=== PATIENT | female | born 1985 | race Caucasian/White ===

== ENCOUNTER 2024-05-15 00:30 | Inpatient (IN) | payer MEDICARE, MEDICAID, SELFPAY ==
--- NOTE | 2024-05-15 | ECG_ITS ---
Test Reason : PROLONGED QTC MEDS Blood Pressure : / mmHG Vent. Rate : 069 BPM Atrial Rate : 069 BPM P-R Int : 156 ms QRS Dur : 076 ms QT Int : 418 ms P-R-T Axes : 079 067 051 degrees QTc Int : 447 ms Normal sinus rhythm Normal ECG No previous ECGs available Referred By: Sharlene Lee Electronically Signed By:Alberto Anderson
--- NOTE | ~2024-05-15 | CT_ITS ---
EXAMINATION: CT ABDOMEN AND PELVIS WITH CONTRAST CLINICAL INFORMATION: Abdominal pain. COMPARISON: None available. TECHNIQUE: Multidetector volumetric images were obtained from the superior aspect of the liver through the pubic symphysis following administration 85 mL of Omnipaque 350 intravenous contrast whiteout reported immediate complication. Sagittal and coronal reformatted images were obtained on the technologist's workstation. Oral contrast: No This CT examination was performed using dose optimization techniques as appropriate, variously including the following: *Automated exposure control *Adjustment of mA and/or kV according to patient size (this includes techniques or standardized protocols for targeted exams where dose is matched to indication/reason for exam; i.e. extremities or head) *Use of iterative reconstruction technique DLP: 351 mGy-cm FINDINGS: LUNG BASES: No acute airspace disease or gross pulmonary nodules in the included lungs. LIVER, GALLBLADDER, AND BILIARY TREE: Liver measures 16 cm. No focal mass. Portal vein and hepatic veins are patent. Intrahepatic portion of the IVC is patent. No intrahepatic biliary ductal dilatation. Contracted gallbladder without pericholecystic fluid collection or gallbladder wall thickening. Common bile duct measures 4 mm. PANCREAS: No focal pancreatic mass. No peripancreatic fluid collection. No main pancreatic ductal dilatation. SPLEEN: Measures 7 cm. No focal mass. ADRENAL GLANDS: No nodular lesion. KIDNEYS AND URETERS: Normal enhancement pattern of the renal parenchyma without hydronephrosis or gross mass. Subcentimeter cyst, left kidney. BLADDER: Fluid-filled. GASTROINTESTINAL TRACT: Segmental concentric wall thickening, descending colon and segments of the edematous wall in the distal ileal loops. No intestinal obstruction pattern. No pneumatosis intestinalis. Appendix is normal. No ascites. An edematous mesentery . No pneumoperitoneum. ABDOMINAL WALL: No gross hernia. LYMPH NODES: No gross lymphadenopathy. VASCULAR: No aneurysm or dissection, abdominal aorta. PELVIC VISCERA: No gross lesions in the adnexa or the uterus. OSSEOUS STRUCTURES: No acute fracture or listhesis. No lytic or blastic lesions. CT/CT abdomen pelvis w IV con IMPRESSION: Consider inflammatory bowel disease such as Crohn's disease and less likely ulcerative colitis in the correct clinical settings. Discussed with the emergency physician Dr. Bonilla at 8:40 AM. Fleischner guidelines were followed. Electronically signed by: Rigo Ye MD 05/15/2024 08:47 AM AN[facility] REDDY
[2024-05-15 00:31] VITALS: BP 137/77; PULSE 100; RESP 18; TEMP 37.2; O2SAT 98; BMI 22.9
[2024-05-15 01:23] LABS: MANUAL DIFF FLAG NO
[2024-05-15 01:26] LABS: Basophils Absolute Auto 0.1 X10*3/uL (0.0-0.2); Basophils Percent Auto 0.3 % (0-2); Eosinophils Absolute Auto 0.1 X10*3/uL (0.0-0.4); Eosinophils Percent Auto 0.3 % (0-4); Hematocrit 38.1 % (37.0-47.0); Hemoglobin 13.2 g/dl (12.0-16.0); Imm Gran Abs Auto 0.05 X10*3/uL (0.00-0.03); Imm Gran Pct Auto 0.3 % (0.0-0.4); Lymphocytes Absolute Auto 0.9 X10*3/uL (1.2-4.9); Lymphocytes Percent Auto 6.3 % (20-40); Mean Corpuscular HGB Conc 34.6 g/dl (31.0-35.0); Mean Corpuscular Hemoglobin 30.2 pg (27.0-33.0); Mean Corpuscular Volume 87.2 fL (80.0-98.0); Mean Platelet Volume 11.2 fL (9.4-12.3); Monocytes Absolute Auto 0.8 X10*3/uL (0.1-1.2); Monocytes Percent Auto 5.4 % (2-11); Neutrophils Absolute Auto 12.7 x10*3/uL (2.0-8.3); Neutrophils Percent Auto 87.4 % (45-73); Platelet Count 218 X10*3/uL (160-400); Red Blood Count 4.37 X10*6/uL (4.20-5.50); Red Cell Distribution Width 11.4 % (11.0-16.0); White Blood Count 14.5 X10*3/uL (4.8-10.8)
[2024-05-15 01:36] LABS: Alanine Aminotransferase 12 U/L (0-31); Alkaline Phosphatase 59 U/L (39-117); Anion Gap 15 (12-20); Aspartate Amino Transferase 16 U/L (5-31); Bilirubin Total 0.5 mg/dL (0.0-1.0); Blood Urea Nitrogen 13 mg/dL (9-16); Calcium 9.2 mg/dL (8.4-10.2); Carbon Dioxide 21 mmol/L (22-29); Chloride 102 mmol/L (96-108); Creatinine Clr Calc Pharmacy 92.7; Estimated Glomerular Filt Rate > 60; Glucose Random 118 mg/dL (60-115); Lipase 23 U/L (8-78); Potassium 3.9 mmol/L (3.3-5.1); Sodium 134 mmol/L (135-145); Total Protein 6.9 g/dL (6.5-8.0)
[2024-05-15 02:48] LABS: UPreg QC Valid YES; Urine Pregnancy NEGATIVE (NEGATIVE)
[2024-05-15 02:49] LABS: Appearance Urine Clear; Color Urine Yellow; Glucose Urine UA Negative (Negative); Leukocyte Esterase Urine Negative (Negative); Nitrite Urine Negative (Negative); Specific Gravity - Urine 1.025 (1.005-1.025); UMIC TRIGGER UACC YES; Urine Blood Small (1+) (Negative); Urine Ketones Negative (Negative); Urine Protein Negative (Neg-Trace)
[2024-05-15 03:01] LABS: Bacteria Urine None Seen (None Seen); Hyaline Casts Urine 0-2 /LPF (0-2); Squamous Epithelial Cell Urine 0-2 /HPF (0-2); WBC Urine 0-5 /HPF (0-5)
[2024-05-15 04:17] VITALS: BP 117/69; PULSE 78; RESP 18; O2SAT 96
--- NOTE | 2024-05-15 07:12 | ED.ABDPAIN ---
HPI - Abdominal Pain General Chief Complaint: Abdominal Pain Stated Complaint: Abd pain Time Seen by Provider: 05/15/24 07:06 Source: patient Mode of arrival: ambulatory Limitations: no limitations History of Present Illness HPI narrative: This is 39 years old patient with no significant past medical history but hypothyroidism presented to the emergency department complaining of abdominal cramps diarrhea, symptoms started on May 01 subsided and now symptoms back for the last 5 days. There is no fever no vomiting she does have nausea MD elicited complaint: abdominal pain Pertinent past history: none Onset (ago): day(s) (Worse for the last 5 days) Pain Consistency: constant Location: none Quality: cramping Radiation: none Migration to: no migration Associated symptoms: nausea Related Data Home Medications ?Medication ?Instructions ?Recorded ?Confirmed lamotrigine 5 mg chewable 5 mg PO DAILY 05/15/24 05/15/24 dispersible tablet levothyroxine 25 mcg tablet 25 mcg PO DAILY 05/15/24 05/15/24 norgestimate 0.25 mg-ethinyl 1 tab PO DAILY 05/15/24 05/15/24 estradiol 35 mcg tablet (Sprintec (28)) Allergies Allergy/AdvReac Type Severity Reaction Status Date / Time marigold [From Menastil] Allergy Rash Verified 05/15/24 02:41 menthol [From Mencylate] Allergy Rash Verified 05/15/24 00:40 methyl salicylate Allergy Rash Verified 05/15/24 00:40 [From Mencylate] prochlorperazine Allergy Rash Verified 05/15/24 00:40 [From Compazine] Review of Systems Reports system reviewed and no additional complaints, except as documented Respiratory: Reports no additional respiratory complaints Reports system reviewed and no additional complaints, except as documented REPLACED BY [facility] Past Medical History REPLACED BY [facility] Narrative: Hypothyroidism hep C Social History Social History Smoked in Last 30 Days: No Use of substances other than those prescribed or required for medical reasons: No Advance Directives: No Advance Directives Information Provided: No Do you have a plan to hurt others: No Plan Patient : No Physical Exam ED Vital Signs: Vital Signs - 24 hr 05/15/24 00:31 05/15/24 04:17 05/15/24 07:30 Temperature 98.9 F 97.9 F Pulse Rate 100 78 80 Respiratory Rate 18 18 16 Blood Pressure 137/77 117/69 126/80 Pulse Oximetry 98 96 94 Oxygen Delivery Method Room Air Room Air BMI result Body Mass Index 22.9 Patient is in no distress looks well Const General: cooperative and comfortable Orientation/consciousness: patient oriented x3 HENMT Head: Yes normal to inspection General nose exam: Normal external nose present Face and sinus: Yes normal facial exam Mouth: Normal oral and palatal mucosa present Throat: Yes posterior oropharynx normal Neck Neck: Yes normal visual inspection Chest Chest palpation & inspection: normal inspection of the chest Resp Effort & Inspection: normal respiratory effort Auscultation: clear to auscultation bilaterally Cardio Jugular venous distension: no JVD Rhythm: regular rhythm GI Inspection: Yes normal to inspection Palpation (GI): Soft to palpation, not firm and nontender Auscultation: normal bowel sounds General: Yes no CVA tenderness Back/Spine/Pelvis Back: no CVA tenderness Skin General skin exam: no rashes or lesions noted and elasticity normal Rashes: no rashes Neuro General: patient oriented x3 Extrem Right upper extremity: normal to inspection Left upper extremity: full ROM Course Reevaluation(s) Reevaluation #1: Still complaining of pain CT reviewed consistent with colitis differential diagnosis inflammatory bowel disease such Crohn disease such ulcerative colitis versus infectious colitis, at this point I think it is very reasonable to admit the patient for IV fluid IV pain meds antibiotic Time: 10:27 Medical Decision Making Medical Decision Making [facility] Narrative: Patient presented with abdominal comes bloody diarrhea will obtain labs provide hydration antiemetic CT Differential Diagnosis Differential Diagnoses: The differential diagnosis associated with the presentation includes Colitis/diverticulitis/viral syndrome Admission/Observation Consideration of admission/observation: Escalation of care including admission/observation considered Consult Healthcare Provider Management of the patient was discussed with: Hospitalist Lab Data [facility] Lab Attestation statement: I reviewed the patient's lab results. 05/15/24 01:17 05/15/24 01:17 Labs: Lab Results 05/15/24 05/15/24 Range/Units 01:17 02:27 WBC 14.5 H (4.8-10.8) X10*3/uL RBC 4.37 (4.20-5.50) X10*6/uL Hgb 13.2 (12.0-16.0) g/dl Hct 38.1 (37.0-47.0) % MCV 87.2 (80.0-98.0) fL MCH 30.2 (27.0-33.0) pg MCHC 34.6 (31.0-35.0) g/dl RDW 11.4 (11.0-16.0) % Plt Count 218 (160-400) X10*3/uL MPV 11.2 (9.4-12.3) fL Immature Gran % (Auto) 0.3 (0.0-0.4) % Neut % (Auto) 87.4 H (45-73) % Lymph % (Auto) 6.3 L (20-40) % [place] % (Auto) 5.4 (2-11) % Eos % (Auto) 0.3 (0-4) % Baso % (Auto) 0.3 (0-2) % Lymph # (Auto) 0.9 L (1.2-4.9) X10*3/uL [place] # (Auto) 0.8 (0.1-1.2) X10*3/uL Eos # (Auto) 0.1 (0.0-0.4) X10*3/uL Baso # (Auto) 0.1 (0.0-0.2) X10*3/uL Abs Immat Gran (auto) 0.05 H (0.00-0.03) X10*3/uL Absolute Neuts (auto) 12.7 H (2.0-8.3) x10*3/uL Absolute Nucleated RBC 0.000 (0.0-0.012) X10*3/uL Nucleated RBC % (auto) 0.0 (0.0-0.2) /100WBC Sodium 134 L (135-145) mmol/L Potassium 3.9 (3.3-5.1) mmol/L Chloride 102 (96-108) mmol/L Carbon Dioxide 21 L (22-29) mmol/L Anion Gap 15 (12-20) BUN 13 (9-16) mg/dL Creatinine 0.65 (0.5-1.4) mg/dL Estim Creat Clear Calc 92.7 Estimated GFR > 60 Random Glucose 118 H (60-115) mg/dL Calcium 9.2 (8.4-10.2) mg/dL Total Bilirubin 0.5 (0.0-1.0) mg/dL AST 16 (5-31) U/L ALT 12 (0-31) U/L Alkaline Phosphatase 59 (39-117) U/L Total Protein 6.9 (6.5-8.0) g/dL Albumin 4.0 (3.5-5.0) g/dL Lipase 23 (8-78) U/L Urine Color Yellow Urine Appearance Clear Urine pH 5.0 (5.0-9.0) Ur Specific [place] 1.025 (1.005-1.025) Urine Protein Negative (Neg-Trace) mg/dL Urine Glucose (UA) Negative (Negative) mg/dL Urine Ketones Negative (Negative) mg/dL Urine Blood Small (1+) H (Negative) Urine Nitrite Negative (Negative) Ur Leukocyte Esterase Negative (Negative) Urine RBC 6-10 H (0-2) /HPF Urine WBC 0-5 (0-5) /HPF Ur Squamous Epith Cells 0-2 (0-2) /HPF Urine Bacteria None Seen (None Seen) Hyaline Casts 0-2 (0-2) /LPF Urine Test NEGATIVE (NEGATIVE) Independent Interpretation I performed an independent interpretation of an: CT Scan Interpretation: I personally reviewed interpreted CT as colitis Radiology Impression Discussion of test interpretation with radiology: I have reviewed the radiologist's reading. Independent Historian Clinical information obtained from an independent historian. History obtained from or confirmed by: Other (Mother) Prescription Management I considered prescription management with: Pain Medication Medications Administered Generic Name Dose Route Start Last Admin Trade Name Freq PRN Reason Stop Dose Admin Sodium Chloride 1,000 mls @ 999 mls/hr 05/15/24 09:30 05/15/24 09:42 Ns IVCONT 05/15/24 10:30 999 mls/hr .Q1H1M EDUARDO Administration Levofloxacin 500 mg in 100 mls @ 100 mls/hr 05/15/24 09:33 05/15/24 09:42 Levaquin IV 05/15/24 10:32 100 mls/hr ONCE ONE Administration Discontinued Medications Generic Name Dose Route Start Last Admin Trade Name Freq PRN Reason Stop Dose Admin Fentanyl 50 mcg 05/15/24 07:09 05/15/24 07:24 Fentanyl Citrate/Pf 100 Mcg/2 Ml Vial IVPUSH 05/15/24 07:10 50 mcg ONCE ONE Administration Protocol Fentanyl 50 mcg 05/15/24 10:00 05/15/24 10:06 Fentanyl Citrate/Pf 100 Mcg/2 Ml Vial IVPUSH 05/15/24 10:01 50 mcg ONCE ONE Administration Protocol Sodium Chloride 1,000 mls @ 999 mls/hr 05/15/24 07:15 05/15/24 09:05 Ns IVCONT 05/15/24 08:15 Infused .Q1H1M EDUARDO Infusion Iohexol 100 ml 05/15/24 07:49 05/15/24 07:54 Iohexol 350 Mg/Ml 100 Ml Infus..Btl IV 05/15/24 07:50 85 ml ONCE ONE Administration Ondansetron HCl 4 mg 05/15/24 07:09 05/15/24 07:24 Ondansetron Hcl 4 Mg/2 Ml Vial IVPUSH 05/15/24 07:10 4 mg ONCE ONE Administration Discharge Plan Discharge Clinical Impression: Colitis Patient Disposition: Admitted As Inpatient Print Language: Georgian
[2024-05-15] MEDS: 0.9 % Sodium Chloride 1,000 ML 999 ML IVCONT ×2 (07:23→09:42)
[2024-05-15] MEDS: fentaNYL citrate/PF 100 MCG/2 ML VIAL 50 MCG IVPUSH ×2 (07:24→10:06)
[2024-05-15] MEDS: ondansetron HCL 4 MG/2 ML VIAL IVPUSH (07:24)
[2024-05-15 07:30] VITALS: BP 126/80; PULSE 80; RESP 16; TEMP 36.6; O2SAT 94
[2024-05-15] MEDS: iohexoL 350 MG/ML 100 ML INFUS..BTL IV (07:54)
[2024-05-15] MEDS: levoFLOXacin/D5W 500 MG/100 ML PIGGYBACK 100 MG IV (09:42)
--- NOTE | 2024-05-15 10:52 | P.HPHOSP_ITS ---
History of Present Illness Date of Service: 05/15/24 Attending physician on admission: Toribio Lema Chief Complaint: hematochezia, diarrhea, abd cramping Patient is a 39-year-old female with a past medical history significant for hypothyroidism, hepatitis-C (treated) and mood disorder, presented to the ED with hematochezia, diarrhea and abdominal cramping. She reports severe diarrhea starting 05/01 and the following day she had abdominal soreness and soft stool for a few days. The diarrhea then returned and last night around 21:00 became much more significant, at least 10 episodes overnight with bright red blood and severe abdominal cramping, rating it a 6/10 at rest and intermittent sharp 10/10 cramping. She denies any previous history of similar. No recent travel or antibiotics. She does report that there has been a sandwich leak at her apartment and showed videos of switch coming out of her ventilation from the upstairs neighbor. She reports there may have been some contamination with using basins to catch the weeks. She has been practicing good hand hygiene. She also complains of sweats, weakness and dizziness. Review of Systems 2 Constitutional: Constitutional: Denies chills, Reports excessive sweating, Denies headache(s) and Reports weakness Eyes: Eyes: Denies change in vision ENT: Denies dizziness, Denies headache(s), Denies nasal congestion and Denies nasal discharge Cardiovascular: Cardiovascular: Denies chest pain, Denies rapid heart rate, Denies leg edema and Denies dyspnea Respiratory: Respiratory: Denies chest congestion, Denies cough and Denies dyspnea Gastrointestinal: Gastrointestinal: Reports diarrhea Genitourinary: Genitourinary: Denies dysuria Musculoskeletal: Musculoskeletal: Denies muscle cramps, Reports muscle weakness, Denies numbness and Denies tingling Integumentary/Breasts: Skin/Breast: Denies rash Neurologic: Denies confusion, Denies dizziness, Denies headache(s), Denies numbness, Denies tingling and Reports weakness Psychiatric: Psychiatric: Denies confusion Endocrine: Endocrine: Reports excessive sweating PMFSH Functional capacity: independent ambulation Pertinent family history: mother - infectious colitis years ago Social History Smoked in Last 30 Days: No Use of substances other than those prescribed or required for medical reasons: No Advance Directives: No Advance Directives Information Provided: No Do you have a plan to hurt others: No Plan Patient : No Meds Allergies Allergy/AdvReac Type Severity Reaction Status Date / Time marigold [From Menastil] Allergy Rash Verified 05/15/24 02:41 menthol [From Mencylate] Allergy Rash Verified 05/15/24 00:40 methyl salicylate Allergy Rash Verified 05/15/24 00:40 [From Mencylate] prochlorperazine Allergy Rash Verified 05/15/24 00:40 [From Compazine] Home Medications ?Medication ?Instructions ?Recorded ?Confirmed ?Last Taken ?Type lamotrigine 5 mg chewable 5 mg PO DAILY 05/15/24 05/15/24 Unknown History dispersible tablet levothyroxine 25 mcg tablet 25 mcg PO DAILY 05/15/24 05/15/24 Unknown History norgestimate 0.25 mg-ethinyl 1 tab PO DAILY 05/15/24 05/15/24 Unknown History estradiol 35 mcg tablet (Sprintec (28)) Physical Exam 2 Vital Signs and Narrative: Vital Signs: Last Vital Signs Temp 97.9 F 05/15/24 07:30 Pulse 80 05/15/24 07:30 Resp 16 05/15/24 07:30 BP 126/80 05/15/24 07:30 Pulse Ox 94 05/15/24 07:30 O2 Del Method Room Air 05/15/24 07:30 BMI result Body Mass Index 22.9 General: AOx3, no acute distress, seen with mother bedside Resp: CTA bilaterally CVS: S1, S2, RRR GI: +BS, mild generalized tenderness, no distention Skin: Warm, dry Extremities: No edema Psych: Appropriate affect Const: General: No confusion Orientation/consciousness: No confusion Neuro: General: No confusion Results Labs 05/15/24 01:17 05/15/24 01:17 Labs: Laboratory Results - last 24 hr 05/15/24 05/15/24 01:17 02:27 MCV 87.2 MCH 30.2 MCHC 34.6 RDW 11.4 Plt Count 218 MPV 11.2 Immature Gran % (Auto) 0.3 Neut % (Auto) 87.4 H Lymph % (Auto) 6.3 L [place] % (Auto) 5.4 Eos % (Auto) 0.3 Baso % (Auto) 0.3 Lymph # (Auto) 0.9 L [place] # (Auto) 0.8 Eos # (Auto) 0.1 Baso # (Auto) 0.1 Abs Immat Gran (auto) 0.05 H Absolute Neuts (auto) 12.7 H Absolute Nucleated RBC 0.000 Nucleated RBC % (auto) 0.0 Anion Gap 15 Estim Creat Clear Calc 92.7 Estimated GFR > 60 Random Glucose 118 H Calcium 9.2 Total Bilirubin 0.5 AST 16 ALT 12 Alkaline Phosphatase 59 Total Protein 6.9 Albumin 4.0 Lipase 23 Urine Color Yellow Urine Appearance Clear Urine pH 5.0 Ur Specific [place] 1.025 Urine Protein Negative Urine Glucose (UA) Negative Urine Ketones Negative Urine Blood Small (1+) H Urine Nitrite Negative Ur Leukocyte Esterase Negative Urine RBC 6-10 H Urine WBC 0-5 Ur Squamous Epith Cells 0-2 Urine Bacteria None Seen Hyaline Casts 0-2 Urine Test NEGATIVE Imaging Radiologist's Impressions: Impressions Abdomen/Pelvis CT 05/15/24 07:46 IMPRESSION: Consider inflammatory bowel disease such as Crohn's disease and less likely ulcerative colitis in the correct clinical settings. Discussed with the emergency physician Dr. Bonilla at 8:40 AM. Fleischner guidelines were followed. Electronically signed by: Rigo Ye MD 05/15/2024 08:47 AM [facility] Assessment and Plan (1) Colitis: Status: Acute Plan Patient is a 39-year-old female with a past medical history significant for hypothyroidism, hepatitis-C (treated) and mood disorder, presented to the ED with hematochezia, diarrhea and abdominal cramping. Leukocytosis on CBC, vital stable, CT with segmental concentric wall thickening, descending colon and segments of edematous wall in the distal ileal loops. Ddx: infectious colitis, gastroenteritis, IBD Colitis - infectious vs IBD - leukocytosis on CBC - mild hyponatremia on CMP - CT with possible colitis - patient started on Levaquin and Flagyl in ED, we will continue - C diff, stool panel, stool leukocytes and occult blood stool test pending - GI consult Hypothyroid - continue levothyroxine Mood disorder - continue lamotrigine, patient will take home med as she reports she needs specific heating fixture tender medication Hepatitis C - treated, LFTs normal Full code VTE prophylaxis: Lovenox Patient with colitis, infectious versus IBD, requiring admission for IV fluids, pain management and IV antibiotics for at least 2 midnights stay. Quality Stroke Does the patient have a stroke diagnosis?: No VTE Prior VTE?: No VTE Risk Level:: Medical - moderate - high VTE Device Contraindication: Treatment Not Indicated VTE Drug Contraindication: N/A - Med Ordered
[2024-05-15] MEDS: metroNIDAZOLE/NS 500 MG/100 ML PIGGYBACK 100 MG IV ×2 (10:54→20:25)
--- NOTE | 2024-05-15 11:19 | PHA.MEDREC ---
Addendum entered by Tracy Christopher RPh 05/15/24 11:21: Reviewed by [facility] Original Note: Pharmacy Consult ? Medication Reconciliation Pharmacy has reviewed the medication reconciliation done by nurse. Spoke to patient to confirm med list.
[2024-05-15 12:05] VITALS: BP 114/65; PULSE 64; RESP 14; TEMP 36.7; O2SAT 100
--- NOTE | 2024-05-15 12:43 | P.CNGI_ITS ---
History of Present Illness Data of Consult Service Date: 05/15/24 Requesting physician: Sharlene Lee Primary Care Provider: Rachelle Acuna MD HPI Reason for consult: Colitis 39 YF with hx of hypothyroidism, hepatitis-C (treated) and mood disorder seen at [facility] on 05/15/24 with hematochezia, diarrhea and abdominal cramping. Pt reports severe watery, non bloody diarrhea starting 05/01 which resolved after 1-2 days. Since then she has noted some mild abdominal soreness. Last night at around 9 pm, she noted 7-8/10 lower abdominal pain with waves of cramping and loose to watery diarrhea with blood mixed with stools. Pt reports having at least 10 episodes of diarrhea with bright red blood. Pain is worse when she sits up or lies on her side. Pt complains of nausea, chills and sweating, weakness and dizziness and denies fever or vomiting. She denies any change in appetite or weight. Pt gives a hx of mouth ulcers in the past and denies Jt pains or skin rash She denies any history of similar symptoms in the past. No recent travel or antibiotics. She does report that there has been a sheet sewer leak at her apartment and showed videos of stuff coming out of her ventilation from the upstairs neighbor. She reports there may have been some contamination with using basins to catch the leak. She has been practicing good hand hygiene. Pt denies smoking, ETOH or Marijuana or NSAID use. She takes acetaminophen prn for aches and pains Family hx if positive for self limited colitis in her Mom, Maternal GM had diverticulitis and Maternal GGM had colon cancer. Pt denies know FH of IBD. Pt is disabled and lives by herself in an apartment (Mom lives in the same apt building). 05/15/[address] SCAN SHOWED: GASTROINTESTINAL TRACT: Segmental concentric wall thickening, descending colon and segments of the edematous wall in the distal ileal loops. No intestinal obstruction pattern. No pneumatosis intestinalis. Appendix is normal. No ascites. An edematous mesentery . No pneumoperitoneum. Review of Systems 2 Review of Systems: Yes all other systems are reviewed and are negative [facility] Social History Social History Patient Tobacco Use Status: Never used Tobacco Smoked in Last 30 Days: No Use of substances other than those prescribed or required for medical reasons: No Advance Directives: No Advance Directives Information Provided: No Do you have a plan to hurt others: No Plan Nutrition Risks: No Nutritional Risk Patient : No Meds Allergies Allergy/AdvReac Type Severity Reaction Status Date / Time marigold [From Menastil] Allergy Rash Verified 05/15/24 02:41 menthol [From Mencylate] Allergy Rash Verified 05/15/24 00:40 methyl salicylate Allergy Rash Verified 05/15/24 00:40 [From Mencylate] prochlorperazine Allergy Rash Verified 05/15/24 00:40 [From Compazine] Active Medications: Current Medications Acetaminophen (Acetaminophen 325 Mg Tablet) 650 mg PO Q6H PRN PRN Reason: Pain, Mild (Pain Scale 1-3), fever or headache Calcium Carbonate (Calcium Carbonate 750 Mg Tab.Chew) 750 mg PO Q4H PRN PRN Reason: Heartburn Enoxaparin Sodium (Enoxaparin Sodium 40 Mg/0.4 Ml Syringe) 40 mg SUBCUT Q24H [facility] Last Admin: 05/15/24 12:00 Dose: Not Given Metronidazole (Flagyl) 500 mg in 100 mls @ 100 mls/hr IV Q8H [facility] Levofloxacin (Levaquin) 500 mg in 100 mls @ 100 mls/hr IV Q24H [facility] Levothyroxine Sodium (Levothyroxine Sodium 25 Mcg Tablet) 25 mcg PO DAILY@0600 [facility] Last Admin: 05/15/24 11:59 Dose: Not Given Magnesium Hydroxide (Milk Of Magnesia 30 Ml Oral.Susp) 30 ml PO DAILY PRN PRN Reason: Constipation Melatonin (Melatonin 3 Mg Tablet) 6 mg PO BEDTIME PRN PRN Reason: Insomnia Morphine Sulfate (Morphine Sulfate 4 Mg/Ml Cartridge) 2 mg IVPUSH Q4H PRN; Protocol PRN Reason: Pain, Severe (Pain Scale 7-10) Non-Formulary Medication (Lamotrigine) 5 mg PO DAILY [facility] Non-Formulary Medication (Norgestimate-Ethinyl Estradiol [Sprintec (28)]) 1 tab PO DAILY [facility] Ondansetron HCl (Ondansetron Hcl 4 Mg/2 Ml Vial) 4 mg IVPUSH Q8H PRN PRN Reason: Nausea and Vomiting Oxycodone HCl (Oxycodone Hcl Immed Release 5 Mg Tablet) 5 mg PO Q6H PRN PRN Reason: Pain, Moderate(Pain Scale 4-6) Sodium Chloride (0.9 % Sodium Chloride Flush 3 Ml Syringe) 3 ml IVFLUSH QSHIFT [facility] Last Admin: 05/15/24 11:58 Dose: Not Given Home Medications ?Medication ?Instructions ?Recorded ?Confirmed ?Last Taken ?Type lamotrigine 5 mg chewable 5 mg PO BEDTIME 05/15/24 05/15/24 05/14/24 History dispersible tablet levothyroxine 25 mcg tablet 25 mcg PO DAILY@0600 05/15/24 05/15/24 05/14/24 History norgestimate 0.25 mg-ethinyl 1 tab PO BEDTIME 05/15/24 05/15/24 05/14/24 History estradiol 35 mcg tablet (Sprintec (28)) Physical Exam 2 Vital Signs: Vital Signs: Last Vital Signs Temp 98.0 F 05/15/24 12:05 Pulse 64 05/15/24 12:05 Resp 14 05/15/24 12:05 BP 114/65 05/15/24 12:05 Pulse Ox 100 05/15/24 12:05 O2 Del Method Room Air 05/15/24 12:05 BMI result Body Mass Index 22.9 Const: General: no acute distress Nutritional Appearance: average body habitus Orientation/consciousness: patient oriented x3 Limitations: no limitations HEENT: Head: Yes normal to inspection Ears: hearing grossly normal bilaterally Mouth: Normal oral and palatal mucosa present Eyes: Sclerae: sclerae normal Pupils: Equal, round and reactive pupils present Neck: Neck: Yes normal visual inspection Chest: Chest palpation & inspection: normal inspection of the chest Resp: Effort & Inspection: normal respiratory effort Auscultation: clear to auscultation bilaterally Cardio: Palpation: normal PMI Rate: regular rate Rhythm: regular rhythm Heart sounds: S1 normal heart sound present, S2 normal heart sound present and no murmurs GI: Palpation (GI): Soft to palpation, Tenderness to palpation present (GI) (moderate lower abdominal tenderness without rebound) and No hepatosplenomegaly present Auscultation: normal bowel sounds Rectal Exam - Female: deferred Skin: General skin exam: no rashes or lesions noted Neuro: General: patient oriented x3, gait normal and moves all extremities Cranial nerves: Yes Equal, round and reactive pupils present Psych: Appearance: grossly normal Mental Status: mental status grossly normal Results Labs 05/15/24 01:17 05/15/24 01:17 Labs: Short CBC 05/15/24 Range/Units 01:17 WBC 14.5 H (4.8-10.8) X10*3/uL Hgb 13.2 (12.0-16.0) g/dl Hct 38.1 (37.0-47.0) % Plt Count 218 (160-400) X10*3/uL BMP 05/15/24 01:17 Sodium 134 L Potassium 3.9 Chloride 102 Carbon Dioxide 21 L BUN 13 Creatinine 0.65 Calcium 9.2 Liver Function 05/15/24 Range/Units 01:17 Total Bilirubin 0.5 (0.0-1.0) mg/dL AST 16 (5-31) U/L ALT 12 (0-31) U/L Alkaline Phosphatase 59 (39-117) U/L Albumin 4.0 (3.5-5.0) g/dL Urine 05/15/24 Range/Units 02:27 Urine Color Yellow Urine Appearance Clear Urine pH 5.0 (5.0-9.0) Ur Specific [place] 1.025 (1.005-1.025) Urine Protein Negative (Neg-Trace) mg/dL Urine Glucose (UA) Negative (Negative) mg/dL Assessment and Plan (1) Colitis: Status: Acute Plan 39 YF with hx of hypothyroidism, hepatitis-C (treated) and mood disorder admitted [place] [facility] [place] with hematochezia, diarrhea and abdominal cramping. Pt complains of nausea, chills and sweating, weakness and dizziness and denies fever or vomiting. Pt gives a hx of mouth ulcers off and on in the past. Pt denies smoking, ETOH or Marijuana or NSAID use. Abd CT scan showed segmental concentric wall thickening involving the descending colon and segments of edematous wall in the distal ileal loops. Pt symptoms are likely due to infectious or ischemic colitis versus subacute presentation of IBD. Labs show elevated white count and CRP of 1.11. RECOMMENDATIONS: 1. Agree with IV antibiotics, pain medications and anti-emetics 2. Await results of stool studies 3. If stool cultures are negative, I will schedule her for a colonoscopy for further evaluation. Procedures Date of Service Date of Service: 05/15/24
[2024-05-15 14:08] LABS: C Reactive Protein 1.11 mg/dL (< or = 0.50)
[2024-05-15 14:36] LABS: Erythrocyte Sedimentation Rate 5 MM/HR (0-20)
[2024-05-15 15:23] VITALS: BP 120/68; PULSE 74; RESP 16; TEMP 37; O2SAT 99
[2024-05-15] MEDS: Morphine Sulfate 4 MG/ML CARTRIDGE 2 MG IVPUSH (15:29)
[2024-05-15 18:53] VITALS: BP 114/65; PULSE 65; RESP 16; TEMP 37.1; O2SAT 100
--- NOTE | 2024-05-15 19:00 | PC.NURSE ---
late entry 1899- this rn assumed care of pt, pt resting in stretcher in [place] no acute distress noted. vss.
[2024-05-16] VITALS (7 sets, daily range): BP systolic 105–116; BP diastolic 61–98; PULSE 70–87; RESP 16–20; TEMP 36.6–37.3; O2SAT 95–100
[2024-05-16] MEDS: Morphine Sulfate 4 MG/ML CARTRIDGE 2 MG IVPUSH ×2 (00:38→08:11)
--- NOTE | 2024-05-16 00:52 | PC.NURSE ---
pt reporting 7/10 right abdominal pain, pt medicated per sep. vss.
[2024-05-16] MEDS: metroNIDAZOLE/NS 500 MG/100 ML PIGGYBACK 100 MG IV ×3 (03:32→18:21)
[2024-05-16 05:17] LABS: MANUAL DIFF FLAG NO
[2024-05-16 05:18] LABS: Basophils Percent Auto 0.3 % (0-2); Eosinophils Absolute Auto 0.1 X10*3/uL (0.0-0.4); Eosinophils Percent Auto 0.9 % (0-4); Hematocrit 36.1 % (37.0-47.0); Hemoglobin 12.1 g/dl (12.0-16.0); Imm Gran Abs Auto 0.03 X10*3/uL (0.00-0.03); Imm Gran Pct Auto 0.3 % (0.0-0.4); Lymphocytes Absolute Auto 1.3 X10*3/uL (1.2-4.9); Lymphocytes Percent Auto 12.3 % (20-40); Mean Corpuscular HGB Conc 33.5 g/dl (31.0-35.0); Mean Corpuscular Hemoglobin 30.4 pg (27.0-33.0); Mean Corpuscular Volume 90.7 fL (80.0-98.0); Mean Platelet Volume 11.4 fL (9.4-12.3); Monocytes Absolute Auto 0.3 X10*3/uL (0.1-1.2); Monocytes Percent Auto 2.7 % (2-11); Neutrophils Absolute Auto 8.5 x10*3/uL (2.0-8.3); Neutrophils Percent Auto 83.5 % (45-73); Platelet Count 162 X10*3/uL (160-400); Red Blood Count 3.98 X10*6/uL (4.20-5.50); Red Cell Distribution Width 11.8 % (11.0-16.0); White Blood Count 10.2 X10*3/uL (4.8-10.8)
[2024-05-16 05:35] LABS: Anion Gap 11 (12-20); Blood Urea Nitrogen 4 mg/dL (9-16); Calcium 8.8 mg/dL (8.4-10.2); Carbon Dioxide 24 mmol/L (22-29); Chloride 105 mmol/L (96-108); Creatinine Clr Calc Pharmacy 86.1; Estimated Glomerular Filt Rate > 60; Glucose Random 94 mg/dL (60-115); Potassium 3.4 mmol/L (3.3-5.1); Sodium 137 mmol/L (135-145)
--- NOTE | 2024-05-16 06:05 | PC.NURSE ---
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 per hospitalist note, okayed. dr.vali slaughter.
--- NOTE | 2024-05-16 06:42 | PC.NURSE ---
pt ambulatory with steady gait to bathroom. pt denies sob and pain.
[2024-05-16] MEDS: ondansetron HCL 4 MG/2 ML VIAL IVPUSH ×3 (08:04→23:45)
[2024-05-16] MEDS: levoFLOXacin/D5W 500 MG/100 ML PIGGYBACK 100 MG IV (10:21)
--- NOTE | 2024-05-16 11:37 | MHC.CM.PN ---
IMM 05/16/24, pt lives alone, is independent, no home health services or DME. HCP discussed, pt will complete and it will be added to chart. PCP confirmed: Rachelle Acuna. DCP: home, self care, mother to transport home. CM to follow for DC needs.
[2024-05-16] MEDS: Morphine Sulfate 4 MG/ML CARTRIDGE IVPUSH ×2 (13:30→23:03)
--- NOTE | 2024-05-16 13:47 | HO.PM.IMPN ---
Subjective Subjective Date of Service: 05/16/24 Interval History: pt admitted for colitis, abd pain, diarrhea, hematochezia still having abd pain and cramping, worse with movement and eating rating it a 10/10 with movement, 6/10 with the morphine and oxycodone no BM since her urine contaminated sample yesterday nausea ok, no further vomiting. Constitutional Constitutional: Denies body ache(s) and Denies headache(s) Eyes Eyes: Denies blurry vision and Denies change in vision ENT Ears, Nose, Mouth, and Throat: Denies headache(s), Denies nasal congestion, Denies nasal discharge and Denies nasal obstruction Cardiovascular Cardiovascular: Denies chest pain, Denies rapid heart rate, Denies leg edema and Denies dyspnea Respiratory Respiratory: Denies cough and Denies dyspnea Gastrointestinal Gastrointestinal: Reports as per HPI Genitourinary Genitourinary: Denies dysuria and Denies urinary urgency Musculoskeletal Musculoskeletal: Denies myalgias Integumentary/Breasts Skin/Breast: Denies rash Neurologic Neurologic: Denies confusion and Denies headache(s) Psychiatric Psychiatric: Reports anxiety and Denies confusion Physical Exam Vital Signs: Vital Signs: Last Vital Signs Temp 98.1 F 05/16/24 13:23 Pulse 78 05/16/24 13:23 Resp 17 05/16/24 13:23 BP 115/65 05/16/24 13:23 Pulse Ox 98 05/16/24 13:23 O2 Del Method Room Air 05/16/24 13:23 BMI result Body Mass Index 22.9 General: AOx3, no acute distress Resp: CTA bilaterally CVS: S1, S2, RRR GI: +BS, generalized tenderness, no distention Skin: Warm, dry Extremities: No edema Psych: Appropriate affect Const: General: No confusion Orientation/consciousness: No confusion Neuro: General: No confusion Objective Data Active Medications Acetaminophen (Acetaminophen 325 Mg Tablet) 650 mg PO Q6H PRN PRN Reason: Pain, Mild (Pain Scale 1-3), fever or headache Calcium Carbonate (Calcium Carbonate 750 Mg Tab.Chew) 750 mg PO Q4H PRN PRN Reason: Heartburn Enoxaparin Sodium (Enoxaparin Sodium 40 Mg/0.4 Ml Syringe) 40 mg SUBCUT Q24H [facility] Last Admin: 05/16/24 11:36 Dose: Not Given Documented By: HO.PROVENC Non-Admin Reason: Patient Refused Levofloxacin (Levaquin) 500 mg in 100 mls @ 100 mls/hr IV Q24H [facility] Last Infusion: 05/16/24 11:24 Dose: Infused Documented By: ANTOINE Metronidazole (Flagyl) 500 mg in 100 mls @ 100 mls/hr IV Q8H [facility] Last Infusion: 05/16/24 13:07 Dose: Infused Documented By: ANTOINE Levothyroxine Sodium (Levothyroxine Sodium 25 Mcg Tablet) 25 mcg PO DAILY@0600 [facility] Last Admin: 05/16/24 06:04 Dose: Not Given Documented By: RALPH Non-Admin Reason: Patient Refused Magnesium Hydroxide (Milk Of Magnesia 30 Ml Oral.Susp) 30 ml PO DAILY PRN PRN Reason: Constipation Melatonin (Melatonin 3 Mg Tablet) 6 mg PO BEDTIME PRN PRN Reason: Insomnia Morphine Sulfate (Morphine Sulfate 4 Mg/Ml Cartridge) 4 mg IVPUSH Q4H PRN; Protocol PRN Reason: Pain, Severe (Pain Scale 7-10) Last Admin: 05/16/24 13:30 Dose: 4 mg Documented By: THI Non-Formulary Medication (Lamotrigine) 5 mg PO DAILY [facility] Non-Formulary Medication (Norgestimate-Ethinyl Estradiol [Sprintec (28)]) 1 tab PO DAILY [facility] Ondansetron HCl (Ondansetron Hcl 4 Mg/2 Ml Vial) 4 mg IVPUSH Q8H PRN PRN Reason: Nausea and Vomiting Last Admin: 05/16/24 08:04 Dose: 4 mg Documented By: ANTOINE Oxycodone HCl (Oxycodone Hcl Immed Release 5 Mg Tablet) 5 mg PO Q6H PRN PRN Reason: Pain, Moderate(Pain Scale 4-6) Sodium Chloride (0.9 % Sodium Chloride Flush 3 Ml Syringe) 3 ml IVFLUSH QSHIFT [facility] Last Admin: 05/16/24 07:56 Dose: Not Given Documented By: ANTOINE Non-Admin Reason: See Note Labs 05/16/24 04:57 05/16/24 04:57 Labs: Laboratory Results - last 24 hr 05/15/24 05/16/24 13:48 04:57 MCV 90.7 MCH 30.4 MCHC 33.5 RDW 11.8 Plt Count 162 D MPV 11.4 Immature Gran % (Auto) 0.3 Neut % (Auto) 83.5 H Lymph % (Auto) 12.3 L [place] % (Auto) 2.7 Eos % (Auto) 0.9 Baso % (Auto) 0.3 Lymph # (Auto) 1.3 [place] # (Auto) 0.3 Eos # (Auto) 0.1 Baso # (Auto) 0.0 Abs Immat Gran (auto) 0.03 Absolute Neuts (auto) 8.5 H Absolute Nucleated RBC 0.000 Nucleated RBC % (auto) 0.0 ESR 5 Anion Gap 11 L Estim Creat Clear Calc 86.1 Estimated GFR > 60 Random Glucose 94 Calcium 8.8 C-Reactive Protein 1.11 H Assessment and Plan (1) Colitis: Status: Acute Plan Patient is a 39-year-old female with a past medical history significant for hypothyroidism, hepatitis-C (treated) and mood disorder, admitted for colitis. 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 Quality Stroke Does the patient have a stroke diagnosis?: No VTE Prior VTE?: No VTE Risk Level:: Medical - moderate - high VTE Device Contraindication: Treatment Not Indicated VTE Drug Contraindication: N/A - Med Ordered
[2024-05-16] MEDS: 0.9 % Sodium Chloride Flush 3 ML SYRINGE IVFLUSH (15:35)
[2024-05-17] VITALS (9 sets, daily range): BP systolic 105–151; BP diastolic 55–94; PULSE 60–77; RESP 14–18; TEMP 36.1–36.8; O2SAT 94–99; BMI 22.9
[2024-05-17] MEDS: metroNIDAZOLE/NS 500 MG/100 ML PIGGYBACK 100 MG IV ×3 (03:23→18:40)
[2024-05-17 05:59] LABS: MANUAL DIFF FLAG NO
[2024-05-17 06:04] LABS: Basophils Absolute Auto 0.1 X10*3/uL (0.0-0.2); Basophils Percent Auto 0.5 % (0-2); Eosinophils Absolute Auto 0.2 X10*3/uL (0.0-0.4); Eosinophils Percent Auto 1.8 % (0-4); Hematocrit 34.6 % (37.0-47.0); Hemoglobin 11.4 g/dl (12.0-16.0); Imm Gran Abs Auto 0.02 X10*3/uL (0.00-0.03); Imm Gran Pct Auto 0.2 % (0.0-0.4); Lymphocytes Absolute Auto 1.7 X10*3/uL (1.2-4.9); Lymphocytes Percent Auto 17.7 % (20-40); Mean Corpuscular HGB Conc 32.9 g/dl (31.0-35.0); Mean Corpuscular Hemoglobin 29.4 pg (27.0-33.0); Mean Corpuscular Volume 89.2 fL (80.0-98.0); Mean Platelet Volume 11.3 fL (9.4-12.3); Monocytes Absolute Auto 0.8 X10*3/uL (0.1-1.2); Monocytes Percent Auto 8.4 % (2-11); Neutrophils Absolute Auto 6.8 x10*3/uL (2.0-8.3); Neutrophils Percent Auto 71.4 % (45-73); Platelet Count 173 X10*3/uL (160-400); Red Blood Count 3.88 X10*6/uL (4.20-5.50); Red Cell Distribution Width 11.7 % (11.0-16.0); White Blood Count 9.5 X10*3/uL (4.8-10.8)
[2024-05-17 06:26] LABS: Anion Gap 12 (12-20); Blood Urea Nitrogen 3 mg/dL (9-16); Calcium 8.7 mg/dL (8.4-10.2); Carbon Dioxide 25 mmol/L (22-29); Chloride 101 mmol/L (96-108); Creatinine Clr Calc Pharmacy 92.7; Estimated Glomerular Filt Rate > 60; Glucose Random 77 mg/dL (60-115); Potassium 3.3 mmol/L (3.3-5.1); Sodium 135 mmol/L (135-145)
[2024-05-17] MEDS: ondansetron HCL 4 MG/2 ML VIAL IVPUSH ×2 (08:26→17:22)
[2024-05-17] MEDS: Morphine Sulfate 4 MG/ML CARTRIDGE IVPUSH (08:27)
[2024-05-17] MEDS: 0.9 % Sodium Chloride Flush 3 ML SYRINGE IVFLUSH ×2 (08:30→15:52)
--- NOTE | 2024-05-17 09:18 | HO.PM.IMPN ---
Subjective Subjective Date of Service: 05/17/24 Interval History: Patient admitted for colitis Pain is somewhat better, able to sit on side of bed which she has not been able to do for the past few days Nausea and vomiting controlled Has not had a bowel movement yet to give sample Anxious about sigmoidoscopy today Constitutional Constitutional: Denies chills and Denies fever(s) Eyes Eyes: Denies change in vision ENT Ears, Nose, Mouth, and Throat: Denies nasal congestion and Denies nasal discharge Cardiovascular Cardiovascular: Denies chest pain, Denies rapid heart rate, Denies leg edema and Denies dyspnea Respiratory Respiratory: Denies cough and Denies dyspnea Gastrointestinal Gastrointestinal: Reports as per HPI Genitourinary Genitourinary: Denies dysuria and Denies urinary urgency Musculoskeletal Musculoskeletal: Denies myalgias Integumentary/Breasts Skin/Breast: Denies rash Neurologic Neurologic: Denies confusion Psychiatric Psychiatric: Denies confusion Physical Exam Vital Signs: Vital Signs: Last Vital Signs Temp 98 F 05/17/24 07:51 Pulse 73 05/17/24 07:51 Resp 16 05/17/24 07:51 BP 107/60 05/17/24 07:51 Pulse Ox 94 05/17/24 07:51 O2 Del Method Room Air 05/17/24 07:51 BMI result Body Mass Index 22.9 General: AOx3, no acute distress Resp: CTA bilaterally CVS: S1, S2, RRR GI: hypoactive BS, generalized tenderness with palpation, no distention Skin: Warm, dry Extremities: No edema Psych: Appropriate affect, anxious Const: General: No confusion Orientation/consciousness: No confusion Neuro: General: No confusion Objective Data Active Medications Acetaminophen (Acetaminophen 325 Mg Tablet) 650 mg PO Q6H PRN PRN Reason: Pain, Mild (Pain Scale 1-3), fever or headache Calcium Carbonate (Calcium Carbonate 750 Mg Tab.Chew) 750 mg PO Q4H PRN PRN Reason: Heartburn Enoxaparin Sodium (Enoxaparin Sodium 40 Mg/0.4 Ml Syringe) 40 mg SUBCUT Q24H [facility] Last Admin: 05/16/24 11:36 Dose: Not Given Documented By: ANTOINE Non-Admin Reason: Patient Refused Levofloxacin (Levaquin) 500 mg in 100 mls @ 100 mls/hr IV Q24H [facility] Last Infusion: 05/16/24 11:24 Dose: Infused Documented By: ANTOINE Metronidazole (Flagyl) 500 mg in 100 mls @ 100 mls/hr IV Q8H [facility] Last Infusion: 05/17/24 04:32 Dose: Infused Documented By: EHSAN Levothyroxine Sodium (Levothyroxine Sodium 25 Mcg Tablet) 25 mcg PO DAILY@0600 [facility] Last Admin: 05/17/24 06:13 Dose: Not Given Documented By: EHSAN Non-Admin Reason: Refused at this time, wants to take later Magnesium Hydroxide (Milk Of Magnesia 30 Ml Oral.Susp) 30 ml PO DAILY PRN PRN Reason: Constipation Melatonin (Melatonin 3 Mg Tablet) 6 mg PO BEDTIME PRN PRN Reason: Insomnia Morphine Sulfate (Morphine Sulfate 4 Mg/Ml Cartridge) 4 mg IVPUSH Q4H PRN; Protocol PRN Reason: Pain, Severe (Pain Scale 7-10) Last Admin: 05/17/24 08:27 Dose: 4 mg Documented By: THI Pt Owned ( Lamotrigine 5 Mg Tablet, Chewable Dispersible) 5 mg PO DAILY [facility] Last Admin: 05/16/24 23:43 Dose: Not Given Documented By: EHSAN Non-Admin Reason: Previously Administered Pt Owned Med ( Norgestimate-Ethinyl Estradiol [Sprintec (28)] 0.25-35 Mg- Mcg Ta 1 tab PO DAILY [facility] Last Admin: 05/16/24 23:43 Dose: Not Given Documented By: EHSAN Non-Admin Reason: Previously Administered Ondansetron HCl (Ondansetron Hcl 4 Mg/2 Ml Vial) 4 mg IVPUSH Q8H PRN PRN Reason: Nausea and Vomiting Last Admin: 05/17/24 08:26 Dose: 4 mg Documented By: THI Oxycodone HCl (Oxycodone Hcl Immed Release 5 Mg Tablet) 5 mg PO Q6H PRN PRN Reason: Pain, Moderate(Pain Scale 4-6) Sodium Chloride (0.9 % Sodium Chloride Flush 3 Ml Syringe) 3 ml IVFLUSH QSHIFT [facility] Last Admin: 05/17/24 08:30 Dose: 3 ml Documented By: THI Labs 05/17/24 05:36 05/17/24 05:36 Labs: Laboratory Results - last 24 hr 05/17/24 05:36 MCV 89.2 MCH 29.4 MCHC 32.9 RDW 11.7 Plt Count 173 MPV 11.3 Immature Gran % (Auto) 0.2 Neut % (Auto) 71.4 Lymph % (Auto) 17.7 L [place] % (Auto) 8.4 Eos % (Auto) 1.8 Baso % (Auto) 0.5 Lymph # (Auto) 1.7 [place] # (Auto) 0.8 Eos # (Auto) 0.2 Baso # (Auto) 0.1 Abs Immat Gran (auto) 0.02 Absolute Neuts (auto) 6.8 Absolute Nucleated RBC 0.000 Nucleated RBC % (auto) 0.0 Anion Gap 12 Estim Creat Clear Calc 92.7 Estimated GFR > 60 Random Glucose 77 Calcium 8.7 Assessment and Plan (1) Colitis: Status: Acute Plan Patient is a 39-year-old female with a past medical history significant for hypothyroidism, hepatitis-C (treated) and mood disorder, admitted for colitis. 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 Quality Stroke Does the patient have a stroke diagnosis?: No VTE Prior VTE?: No VTE Risk Level:: Medical - moderate - high VTE Device Contraindication: Treatment Not Indicated VTE Drug Contraindication: N/A - Med Ordered
[2024-05-17] MEDS: levoFLOXacin/D5W 500 MG/100 ML PIGGYBACK 100 MG IV (10:23)
--- NOTE | 2024-05-17 13:48 | MHC.SHP ---
Pre-Procedural Eval Section A - 24 Hr Update-Section A only Date of Service: 05/17/24 The patient is an INPATIENT: Yes Changes since office visit: Yes New Medical Problems, Yes Changes in Medication and Yes Patient answered all questions; No Cold of Flu in the past 2 weeks The patient has been examined within 24 hours of the surgical procedure. The History & Physical has been completed within 30 days and I have reviewed it.: Yes Section B - Complete if H&P > 30 days Chief Complaint: colitis Allergies: Allergies Allergy/AdvReac Type Severity Reaction Status Date / Time marigold [From Menastil] Allergy Rash Verified 05/15/24 02:41 menthol [From Mencylate] Allergy Rash Verified 05/15/24 00:40 methyl salicylate Allergy Rash Verified 05/15/24 00:40 [From Mencylate] prochlorperazine Allergy Rash Verified 05/15/24 00:40 [From Compazine] Plan Diagnosis/Plan: Unchanged I have reviewed the history and physical and performed a pertinent physical examination on my patient. No changes have occurred unless specified. Time Spent With Patient Time: Total time managing care of this patient today ____ minutes.
--- NOTE | 2024-05-17 13:53 | HO.ANESPROP2 ---
HPI - Anesthesia Eval Consult details Narrative: 39 yo female patient for Flexible sigmoidoscopy PMFSH Active Problems Active Problems: All Active Problems Complex posttraumatic stress disorder (Acute) Hypothyroid (Acute) Colitis (Acute) H/o hepatitis C. Treated Family History Family history of problems with anesthesia: No Surgical History History of Problems with Anesthesia: No Social History Social History Household Members: None Housing: Apartment Do you presently have visiting nurse or other home services: No Patient Tobacco Use Status: Never used Tobacco service: No Meds Allergies Allergy/AdvReac Type Severity Reaction Status Date / Time marigold [From Menastil] Allergy Rash Verified 05/15/24 02:41 menthol [From Mencylate] Allergy Rash Verified 05/15/24 00:40 methyl salicylate Allergy Rash Verified 05/15/24 00:40 [From Mencylate] prochlorperazine Allergy Rash Verified 05/15/24 00:40 [From Compazine] Active Medications: Current Medications Acetaminophen (Acetaminophen 325 Mg Tablet) 650 mg PO Q6H PRN PRN Reason: Pain, Mild (Pain Scale 1-3), fever or headache Calcium Carbonate (Calcium Carbonate 750 Mg Tab.Chew) 750 mg PO Q4H PRN PRN Reason: Heartburn Enoxaparin Sodium (Enoxaparin Sodium 40 Mg/0.4 Ml Syringe) 40 mg SUBCUT Q24H [facility] Last Admin: 05/16/24 11:36 Dose: Not Given Levofloxacin (Levaquin) 500 mg in 100 mls @ 100 mls/hr IV Q24H [facility] Last Infusion: 05/17/24 11:29 Dose: Infused Metronidazole (Flagyl) 500 mg in 100 mls @ 100 mls/hr IV Q8H [facility] Last Infusion: 05/17/24 12:35 Dose: Infused Levothyroxine Sodium (Levothyroxine Sodium 25 Mcg Tablet) 25 mcg PO DAILY@0600 [facility] Last Admin: 05/17/24 06:13 Dose: Not Given Magnesium Hydroxide (Milk Of Magnesia 30 Ml Oral.Susp) 30 ml PO DAILY PRN PRN Reason: Constipation Melatonin (Melatonin 3 Mg Tablet) 6 mg PO BEDTIME PRN PRN Reason: Insomnia Morphine Sulfate (Morphine Sulfate 4 Mg/Ml Cartridge) 4 mg IVPUSH Q4H PRN; Protocol PRN Reason: Pain, Severe (Pain Scale 7-10) Last Admin: 05/17/24 08:27 Dose: 4 mg Pt Owned ( Lamotrigine 5 Mg Tablet, Chewable Dispersible) 5 mg PO BEDTIME EDUARDO Pt Owned Med ( Norgestimate-Ethinyl Estradiol [Sprintec (28)] 0.25-35 Mg- Mcg Ta 1 tab PO BEDTIME [facility] Ondansetron HCl (Ondansetron Hcl 4 Mg/2 Ml Vial) 4 mg IVPUSH Q8H PRN PRN Reason: Nausea and Vomiting Last Admin: 05/17/24 08:26 Dose: 4 mg Oxycodone HCl (Oxycodone Hcl Immed Release 5 Mg Tablet) 5 mg PO Q6H PRN PRN Reason: Pain, Moderate(Pain Scale 4-6) Sodium Chloride (0.9 % Sodium Chloride Flush 3 Ml Syringe) 3 ml IVFLUSH QSHIFT [facility] Last Admin: 05/17/24 08:30 Dose: 3 ml Home Medications ?Medication ?Instructions ?Recorded ?Confirmed ?Last Taken ?Type lamotrigine 5 mg chewable 5 mg PO BEDTIME 05/15/24 05/15/24 05/14/24 History dispersible tablet levothyroxine 25 mcg tablet 25 mcg PO DAILY@0600 05/15/24 05/15/24 05/14/24 History norgestimate 0.25 mg-ethinyl 1 tab PO BEDTIME 05/15/24 05/15/24 05/14/24 History estradiol 35 mcg tablet (Sprintec (28)) Exam Height,Weight and Vital Signs: Height 5 ft 2 in Weight 56.699 kg Last Vital Signs Temp 98 F 05/17/24 07:51 Pulse 73 05/17/24 07:51 Resp 16 05/17/24 07:51 BP 107/60 05/17/24 07:51 Pulse Ox 94 05/17/24 07:51 O2 Del Method Room Air 05/17/24 07:51 Vital Signs Temp Pulse Resp BP Pulse Ox O2 Del Method 05/17/24 13:58 98.0 F 74 18 112/68 99 Room Air 05/17/24 07:51 98 F 73 16 107/60 94 Room Air 05/17/24 03:08 97.5 F 62 16 105/55 L 97 Room Air 05/16/24 19:44 99 F 71 18 109/61 95 Room Air 05/16/24 14:58 98 F 70 18 109/61 100 Room Air Pertinent Lab Results Pertinent Lab Results: Laboratory Tests 05/15/24 05/15/24 05/15/24 01:17 02:27 13:48 WBC 14.5 H RBC 4.37 Hgb 13.2 Hct 38.1 MCV 87.2 MCH 30.2 MCHC 34.6 RDW 11.4 Plt Count 218 MPV 11.2 Immature Gran % (Auto) 0.3 Neut % (Auto) 87.4 H Lymph % (Auto) 6.3 L [place] % (Auto) 5.4 Eos % (Auto) 0.3 Baso % (Auto) 0.3 Lymph # (Auto) 0.9 L [place] # (Auto) 0.8 Eos # (Auto) 0.1 Baso # (Auto) 0.1 Abs Immat Gran (auto) 0.05 H Absolute Neuts (auto) 12.7 H Absolute Nucleated RBC 0.000 Nucleated RBC % (auto) 0.0 ESR 5 Sodium 134 L Potassium 3.9 Chloride 102 Carbon Dioxide 21 L Anion Gap 15 BUN 13 Creatinine 0.65 Estim Creat Clear Calc 92.7 Estimated GFR > 60 Random Glucose 118 H Calcium 9.2 Total Bilirubin 0.5 AST 16 ALT 12 Alkaline Phosphatase 59 C-Reactive Protein 1.11 H Total Protein 6.9 Albumin 4.0 Lipase 23 Urine Color Yellow Urine Appearance Clear Urine pH 5.0 Ur Specific [place] 1.025 Urine Protein Negative Urine Glucose (UA) Negative Urine Ketones Negative Urine Blood Small (1+) H Urine Nitrite Negative Ur Leukocyte Esterase Negative Urine RBC 6-10 H Urine WBC 0-5 Ur Squamous Epith Cells 0-2 Urine Bacteria None Seen Hyaline Casts 0-2 Urine Test NEGATIVE 05/16/24 05/17/24 04:57 05:36 WBC 10.2 9.5 RBC 3.98 L 3.88 L Hgb 12.1 11.4 L Hct 36.1 L 34.6 L MCV 90.7 89.2 MCH 30.4 29.4 MCHC 33.5 32.9 RDW 11.8 11.7 Plt Count 162 D 173 MPV 11.4 11.3 Immature Gran % (Auto) 0.3 0.2 Neut % (Auto) 83.5 H 71.4 Lymph % (Auto) 12.3 L 17.7 L [place] % (Auto) 2.7 8.4 Eos % (Auto) 0.9 1.8 Baso % (Auto) 0.3 0.5 Lymph # (Auto) 1.3 1.7 [place] # (Auto) 0.3 0.8 Eos # (Auto) 0.1 0.2 Baso # (Auto) 0.0 0.1 Abs Immat Gran (auto) 0.03 0.02 Absolute Neuts (auto) 8.5 H 6.8 Absolute Nucleated RBC 0.000 0.000 Nucleated RBC % (auto) 0.0 0.0 ESR Sodium 137 135 Potassium 3.4 3.3 Chloride 105 101 Carbon Dioxide 24 25 Anion Gap 11 L 12 BUN 4 L 3 L Creatinine 0.70 0.65 Estim Creat Clear Calc 86.1 92.7 Estimated GFR > 60 > 60 Random Glucose 94 77 Calcium 8.8 8.7 Total Bilirubin AST ALT Alkaline Phosphatase C-Reactive Protein Total Protein Albumin Lipase Urine Color Urine Appearance Urine pH Ur Specific [place] Urine Protein Urine Glucose (UA) Urine Ketones Urine Blood Urine Nitrite Ur Leukocyte Esterase Urine RBC Urine WBC Ur Squamous Epith Cells Urine Bacteria Hyaline Casts Urine Test Airway Mallampati Class: II (Small mouth) TM Dist: >3cm Neck ROM: Full Loose/Missing/Broken Teeth: No ([place] intact. Denies broken or loose teeth) Heart: RRR Lungs: CTAB Assessment and Plan Assessment Anesthesia Assessment: Anesthesia Plan Discussed and Chart Reviewed Final Anesthetic Review Family History of Problems with Anesthesia: No History of Problems with Anesthesia: No NPO: Yes ASA Class: II and Emergency Final Preanesthetic Review: No Changes in Pt Med Stat, Meds/Allgs Chart Reviewed, Consent Obtained/Reviewed and Anes Risks/Benef Reviewed Patient Risk: Low Procedure Risk: Low Assessment/Block/Sedation in SS: Assess/Block/Sedation-SS Anesthetic Plan Anesthetic Plan: TIVA Disposition: Standard PACU
--- NOTE | 2024-05-17 14:51 | P.OP_ITS ---
Operative Note Operative Note Date of Service: 05/17/24 Narrative: FLEXIBLE SIGMOIDOSCOPY TO 50 CM WITH BIOPSIES Pre-op diagnosis: abdominal pain, bloody diarrhea, abnormal CT scan of the colon. Post-op diagnosis:? Left sided colitis, Diverticulosis Endoscopist:? Rasheed Allan MD Anesthesia:?MAC Consent: Indications for the procedure and potential complications of bleeding, perforation, reaction to medications and missed diagnosis were discussed with the patient and informed consent was obtained. Instrument: Olympus PCF H 190 L variable stiffness pediatric colonoscope Monitoring: Vital signs and clinical assessment, intermittent blood pressure monitoring, continuous EKG monitoring, Pulse oximetry and Carbon Dioxide monitoring were done throughout the procedure. Please see anesthesia flowsheet. Procedure: The patient was placed in the left lateral decubitis position and pre-procedure medications were administered. After a digital rectal examination of the ano-rectum, the video colonoscope was inserted into the rectum and advanced through the colon to 50 cms into the sigmoid colon. The colonoscope was slowly withdrawn in a retrograde panoramic fashion and the colon mucosa was carefully examined including a retroflexed view of the rectum. Findings and interventions are described below. Procedure Difficulty: without difficulty Findings: Sigmoid Colon: Edema, erythema and ulcerations with scattered white exudate/pseudomembranes extending from 20 to 50 cms and extending proximally - multiple biopsies were obtained. There was scattered stool and some old blood coating the vernon of the sigmoid colon Moderate diverticulosis Rectum: Normal rectal mucosa - random biopsies were obtained. Ano-rectum: Normal Colon preparation: Good after some irrigation. [place] Bowel Preparation Scale Right colon; 2 Transverse colon: 2 Left colon; 2 (0 = Unprepared colon segment with mucosa not seen due to solid stool that cannot be cleared. 1 = Portion of mucosa of the colon segment seen, but other areas of the colon segment not well seen due to staining, residual stool and/or opaque liquid. 2 = Minor amount of residual staining, small fragments of stool and/or opaque liquid, but mucosa of colon segment seen well. 3 = Entire mucosa of colon segment seen well with no residual staining, small fragments of stool or opaque liquid) Impression and Post Procedure Diagnosis: Flexible sigmoidoscopy Findings: Edema, erythema and ulcerations with scattered white exudate/pseudomembranes extending from 20 to 50 cms and extending proximally - multiple biopsies were obtained. There was scattered stool and some old blood coating the vernon of the sigmoid colon. Stool specimen collected and sent for C Diff toxin and Gi panel No polyps were detected Moderate diverticulosis seen in the sigmoid colon Plan: 1. Continue IV pain medications, anti-emetics prn and antibiotics until biopsy results are available, 2. Full liquid diet - order placed and advance diet as tolerated. 3. Repeat CRP and check IBD serology - added to am labs Above findings were reviewed with the patient and her Mom. BIOPSIES SHOWED: A. Colon, sigmoid, biopsy: Acute ischemic colitis, patchy, with mucosal erosion and pseudomembrane formation (see comment). B. Rectum, biopsy: Colonic mucosa within normal limits; negative for active, chronic or microscopic colitis. COMMENT (A): The differential diagnosis includes ischemic colitis and pseudomembranous colitis (C. difficile-associated). Clinical correlation is suggeste
[2024-05-17 15:50] LABS: CDiff Gene PCR NEGATIVE (Negative)
[2024-05-17] MEDS: Calcium Carbonate 750 MG TAB.CHEW PO (15:56)
[2024-05-17] MEDS: Lactated Ringers 1,000 ML 100 ML IVCONT (15:56)
[2024-05-17 16:35] LABS: Adenovirus F 40/41 Not Detected (Not Detect.); Astrovirus Not Detected (Not Detect.); Campylobacter Not Detected (Not Detect.); Cryptosporidium Not Detected (Not Detect.); Cyclospora cayetanensis Not Detected (Not Detect.); E. coli EAEC Not Detected (Not Detect.); E. coli EPEC Not Detected (Not Detect.); E. coli ETEC Not Detected (Not Detect.); E. coli STEC Not Detected (Not Detect.); Entamoeba histolytica Not Detected (Not Detect.); Giardia lamblia Not Detected (Not Detect.); Norovirus GI/GII Not Detected (Not Detect.); Plesiomonas shigelloides Not Detected (Not Detect.); Rotavirus A Not Detected (Not Detect.); Salmonella Not Detected (Not Detect.); Sapovirus Not Detected (Not Detect.); Shigella sp./EIEC Not Detected (Not Detect.); Vibrio Not Detected (Not Detect.); Vibrio Cholerae Not Detected (Not Detect.); Yersinia enterocolitica Not Detected (Not Detect.)
[2024-05-17 20:29] LABS: OBS Int Ctl Valid YES; OBS1 POSITIVE (NEGATIVE)
[2024-05-17] MEDS: ETHINYL ESTRADIOL PO (21:54)
[2024-05-17] MEDS: NORGESTIMATE PO (21:54)
[2024-05-17] MEDS: LAMOTRIGINE 5 MG 5 EACH PO (21:54)
[2024-05-18] MEDS: Lactated Ringers 1,000 ML 100 ML IVCONT ×2 (02:41→16:15)
[2024-05-18] MEDS: metroNIDAZOLE/NS 500 MG/100 ML PIGGYBACK 100 MG IV ×3 (02:42→18:33)
[2024-05-18 03:25] VITALS: BP 103/60; PULSE 69; RESP 16; TEMP 36.6; O2SAT 96
[2024-05-18 06:36] LABS: MANUAL DIFF FLAG NO
[2024-05-18 06:42] LABS: Basophils Percent Auto 0.6 % (0-2); Eosinophils Absolute Auto 0.2 X10*3/uL (0.0-0.4); Eosinophils Percent Auto 2.9 % (0-4); Hemoglobin 11.1 g/dl (12.0-16.0); Imm Gran Abs Auto 0.01 X10*3/uL (0.00-0.03); Imm Gran Pct Auto 0.2 % (0.0-0.4); Lymphocytes Absolute Auto 1.7 X10*3/uL (1.2-4.9); Lymphocytes Percent Auto 27.7 % (20-40); Mean Corpuscular HGB Conc 32.6 g/dl (31.0-35.0); Mean Corpuscular Hemoglobin 29.2 pg (27.0-33.0); Mean Corpuscular Volume 89.5 fL (80.0-98.0); Mean Platelet Volume 11.6 fL (9.4-12.3); Monocytes Absolute Auto 0.8 X10*3/uL (0.1-1.2); Monocytes Percent Auto 12.2 % (2-11); Neutrophils Absolute Auto 3.5 x10*3/uL (2.0-8.3); Neutrophils Percent Auto 56.4 % (45-73); Platelet Count 147 X10*3/uL (160-400); Red Cell Distribution Width 11.6 % (11.0-16.0); White Blood Count 6.2 X10*3/uL (4.8-10.8)
[2024-05-18 07:06] LABS: Anion Gap 12 (12-20); Blood Urea Nitrogen 5 mg/dL (9-16); C Reactive Protein 5.64 mg/dL (< or = 0.50); Calcium 8.7 mg/dL (8.4-10.2); Carbon Dioxide 24 mmol/L (22-29); Chloride 105 mmol/L (96-108); Creatinine Clr Calc Pharmacy 97.2; Estimated Glomerular Filt Rate > 60; Glucose Random 77 mg/dL (60-115); Potassium 3.3 mmol/L (3.3-5.1); Sodium 138 mmol/L (135-145)
[2024-05-18 07:46] VITALS: BP 111/68; PULSE 68; RESP 14; TEMP 37.1; O2SAT 95
--- NOTE | 2024-05-18 09:56 | P.PNIM_ITS ---
Subjective Subjective Date of Service: 05/18/24 Interval History: Patient admitted for colitis Flexible sigmoidoscopy yesterday. Had severe gas pain postprocedurally, improved. Still having moderate abdominal pain and cramping. Now having bowel movements, diarrhea without blood. Mild nausea, controlled. No chest pain, shortness of breath, lower extremity edema or any other concerns. Constitutional Constitutional: Denies fatigue, Denies fever(s) and Denies headache(s) Eyes Eyes: Denies change in vision ENT Ears, Nose, Mouth, and Throat: Denies headache(s), Denies nasal congestion, Denies nasal discharge and Denies sore throat Cardiovascular Cardiovascular: Denies chest pain, Denies rapid heart rate, Denies leg edema and Denies dyspnea Respiratory Respiratory: Denies cough and Denies dyspnea Gastrointestinal Gastrointestinal: Reports as per HPI Genitourinary Genitourinary: Denies dysuria and Denies urinary urgency Musculoskeletal Musculoskeletal: Denies myalgias and Denies muscle weakness Integumentary/Breasts Skin/Breast: Denies rash Neurologic Neurologic: Denies confusion and Denies headache(s) Psychiatric Psychiatric: Denies confusion Endocrine Endocrine: Denies fatigue Physical Exam 2 Vital Signs: Vital Signs: Last Vital Signs Temp 98.7 F 05/18/24 07:46 Pulse 68 05/18/24 07:46 Resp 14 05/18/24 07:46 BP 111/68 05/18/24 07:46 Pulse Ox 95 05/18/24 07:46 O2 Del Method Room Air 05/18/24 07:46 O2 Flow Rate 2 05/17/24 14:54 BMI result Body Mass Index 22.9 General: AOx3, no acute distress Resp: CTA bilaterally CVS: S1, S2, RRR GI: +BS, generalized tenderness throughout, no distention Skin: Warm, dry Extremities: No edema Psych: Appropriate affect Const: General: No confusion Orientation/consciousness: No confusion Neuro: General: No confusion Objective Data Active Medications Acetaminophen (Acetaminophen 325 Mg Tablet) 650 mg PO Q6H PRN PRN Reason: Pain, Mild (Pain Scale 1-3), fever or headache Calcium Carbonate (Calcium Carbonate 750 Mg Tab.Chew) 750 mg PO Q4H PRN PRN Reason: Heartburn Last Admin: 05/17/24 15:56 Dose: 750 mg Documented By: THI Enoxaparin Sodium (Enoxaparin Sodium 40 Mg/0.4 Ml Syringe) 40 mg SUBCUT Q24H [facility] Last Admin: 05/16/24 11:36 Dose: Not Given Documented By: ANTOINE Non-Admin Reason: Patient Refused Levofloxacin (Levaquin) 500 mg in 100 mls @ 100 mls/hr IV Q24H [facility] Last Infusion: 05/17/24 11:29 Dose: Infused Documented By: THI Metronidazole (Flagyl) 500 mg in 100 mls @ 100 mls/hr IV Q8H [facility] Last Infusion: 05/18/24 03:50 Dose: Infused Documented By: ANNETTE Lactated Ringer's (Lr) 1,000 mls @ 100 mls/hr IVCONT .Q10H [facility] Last Admin: 05/18/24 02:41 Dose: 100 mls/hr Documented By: ANNETTE Levothyroxine Sodium (Levothyroxine Sodium 25 Mcg Tablet) 25 mcg PO DAILY@0600 [facility] Last Admin: 05/18/24 05:43 Dose: Not Given Documented By: ANNETTE Non-Admin Reason: pt refused, instead took her own Magnesium Hydroxide (Milk Of Magnesia 30 Ml Oral.Susp) 30 ml PO DAILY PRN PRN Reason: Constipation Melatonin (Melatonin 3 Mg Tablet) 6 mg PO BEDTIME PRN PRN Reason: Insomnia Morphine Sulfate (Morphine Sulfate 4 Mg/Ml Cartridge) 2 mg IVPUSH Q4H PRN; Protocol PRN Reason: Pain, Severe (Pain Scale 7-10) Pt Owned ( Lamotrigine 5 Mg Tablet, Chewable Dispersible) 5 mg PO BEDTIME [facility] Last Admin: 05/17/24 21:54 Dose: 5 mg Documented By: ANNETTE Pt Owned Med ( Norgestimate-Ethinyl Estradiol [Sprintec (28)] 0.25-35 Mg- Mcg Ta 1 tab PO BEDTIME [facility] Last Admin: 05/17/24 21:54 Dose: 1 tab Documented By: ANNETTE Ondansetron HCl (Ondansetron Hcl 4 Mg/2 Ml Vial) 4 mg IVPUSH Q8H PRN PRN Reason: Nausea and Vomiting Last Admin: 05/17/24 17:22 Dose: 4 mg Documented By: THI Oxycodone HCl (Oxycodone Hcl Immed Release 5 Mg Tablet) 5 mg PO Q6H PRN PRN Reason: Pain, Moderate(Pain Scale 4-6) Sodium Chloride (0.9 % Sodium Chloride Flush 3 Ml Syringe) 3 ml IVFLUSH QSHIFT [facility] Last Admin: 05/18/24 00:05 Dose: Not Given Documented By: ANNETTE Non-Admin Reason: IV Running Labs 05/18/24 05:37 05/18/24 05:37 Labs: Laboratory Results - last 24 hr 05/17/24 05/17/24 05/18/24 20:00 Unknown 05:37 MCV 89.5 MCH 29.2 MCHC 32.6 RDW 11.6 Plt Count 147 L MPV 11.6 Immature Gran % (Auto) 0.2 Neut % (Auto) 56.4 Lymph % (Auto) 27.7 [place] % (Auto) 12.2 H Eos % (Auto) 2.9 Baso % (Auto) 0.6 Lymph # (Auto) 1.7 [place] # (Auto) 0.8 Eos # (Auto) 0.2 Baso # (Auto) 0.0 Abs Immat Gran (auto) 0.01 Absolute Neuts (auto) 3.5 Absolute Nucleated RBC 0.000 Nucleated RBC % (auto) 0.0 Anion Gap 12 Estim Creat Clear Calc 97.2 Estimated GFR > 60 Random Glucose 77 Calcium 8.7 C-Reactive Protein 5.64 H Stool Occult Blood POSITIVE Stl C. cayetanensis PCR Not Detected Stool Rotavirus A PCR Not Detected Stl Adenov F 40/41 PCR Not Detected Stool Astrovirus (PCR) Not Detected Stool Campylobacter PCR Not Detected Stool Cryptosporidium PCR Not Detected Stl Sh Tox Pr E STEC PCR Not Detected Stool E coli O157 PCR Not applicable Stl Enterotoxigenic E PCR Not Detected Stool EPEC (PCR) Not Detected Stool EAEC (PCR) Not Detected Stl E. histolytica PCR Not Detected Stool Giardia Lamblia PCR Not Detected Stl P. shigelloides PCR Not Detected Stool Salmonella PCR Not Detected Stool Sapovirus (PCR) Not Detected Stl Shigella/EIEC PCR Not Detected St Y.enterocolitica PCR Not Detected Stool Vibrio (PCR) Not Detected Stl Vibrio cholerae PCR Not Detected Stl Norovirus GI/GII PCR Not Detected C. difficile Tox B Gene NEGATIVE Assessment and Plan (1) Colitis: Status: Acute Plan Patient is a 39-year-old female with a past medical history significant for hypothyroidism, hepatitis-C (treated) and mood disorder, admitted for colitis. 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 Quality Stroke Does the patient have a stroke diagnosis?: No VTE Prior VTE?: No VTE Risk Level:: Medical - moderate - high VTE Device Contraindication: Treatment Not Indicated VTE Drug Contraindication: N/A - Med Ordered
[2024-05-18] MEDS: ondansetron HCL 4 MG/2 ML VIAL IVPUSH (09:57)
[2024-05-18] MEDS: Morphine Sulfate 4 MG/ML CARTRIDGE 2 MG IVPUSH (09:58)
[2024-05-18] MEDS: levoFLOXacin/D5W 500 MG/100 ML PIGGYBACK 100 MG IV (10:01)
[2024-05-18] MEDS: Calcium Carbonate 750 MG TAB.CHEW PO (10:19)
--- NOTE | 2024-05-18 13:42 | HO.POSTANES ---
Post Anesthesia Evaluation Post Anesthesia Evaluation Date of Service: 05/17/24 Vital Signs: Vital Signs Temp Pulse Resp BP Pulse Ox O2 Del Method 05/18/24 07:46 98.7 F 68 14 111/68 95 Room Air 05/18/24 03:25 97.9 F 69 16 103/60 96 Room Air Anesthesia: Monitored Mental Status: Awake Pain Control: Satisfactory Nausea/Vomiting: None Hydration: Adequate Anesthesia-Related Issues: No Anes. Related Issues
[2024-05-18 16:00] VITALS: BP 111/59; PULSE 62; RESP 16; TEMP 37.2; O2SAT 96
--- NOTE | 2024-05-18 16:21 | MHC.CM.PN ---
PT NOT YET CLEARED TO DC DCP: HOME NO SERVICES VIA PRIVATE TRANSPORT
[2024-05-18] MEDS: vancomycin HCL 125 MG CAPSULE PO ×2 (16:48→23:47)
[2024-05-18 19:29] VITALS: BP 106/62; PULSE 58; RESP 18; TEMP 36.8; O2SAT 100
[2024-05-18] MEDS: ETHINYL ESTRADIOL PO (21:22)
[2024-05-18] MEDS: NORGESTIMATE PO (21:22)
[2024-05-18] MEDS: LAMOTRIGINE 5 MG 5 EACH PO (21:22)
[2024-05-18] MEDS: Morphine Sulfate 4 MG/ML CARTRIDGE IVPUSH (22:51)
[2024-05-19] MEDS: metroNIDAZOLE/NS 500 MG/100 ML PIGGYBACK 100 MG IV ×3 (02:52→20:16)
[2024-05-19] MEDS: Lactated Ringers 1,000 ML 100 ML IVCONT (02:52)
[2024-05-19 03:48] VITALS: BP 107/59; PULSE 59; RESP 16; TEMP 36.4; O2SAT 95
[2024-05-19] MEDS: vancomycin HCL 125 MG CAPSULE PO ×3 (05:43→17:16)
[2024-05-19 07:22] VITALS: BP 108/58; PULSE 61; RESP 14; TEMP 36.9; O2SAT 96
[2024-05-19] MEDS: ondansetron HCL 4 MG/2 ML VIAL IVPUSH ×2 (09:05→17:23)
[2024-05-19 10:29] VITALS: RESP 16
[2024-05-19] MEDS: Morphine Sulfate 4 MG/ML CARTRIDGE IVPUSH ×2 (10:29→22:35)
--- NOTE | 2024-05-19 10:38 | P.PNIM_ITS ---
Subjective Subjective Date of Service: 05/19/24 Interval History: abd pain ,diarrhae Review of Systems unable to tolerate diet. still has abd soarness similar. Physical Exam 2 Vital Signs: Vital Signs: Last Vital Signs Temp 98.4 F 05/19/24 07:22 Pulse 61 05/19/24 07:22 Resp 16 05/19/24 10:29 BP 108/58 L 05/19/24 07:22 Pulse Ox 96 05/19/24 07:22 O2 Del Method Room Air 05/19/24 07:22 O2 Flow Rate 2 05/17/24 14:54 BMI result Body Mass Index 22.9 General: AOx3, no acute distress Resp: CTA bilaterally CVS: S1, S2, RRR GI: +BS, generalized tenderness throughout, no distention Skin: Warm, dry Extremities: No edema Psych: Appropriate affect. Objective Data Active Medications Acetaminophen (Acetaminophen 325 Mg Tablet) 650 mg PO Q6H PRN PRN Reason: Pain, Mild (Pain Scale 1-3), fever or headache Calcium Carbonate (Calcium Carbonate 750 Mg Tab.Chew) 750 mg PO Q4H PRN PRN Reason: Heartburn Last Admin: 05/18/24 10:19 Dose: 750 mg Documented By: DONNA Enoxaparin Sodium (Enoxaparin Sodium 40 Mg/0.4 Ml Syringe) 40 mg SUBCUT Q24H [facility] Last Admin: 05/16/24 11:36 Dose: Not Given Documented By: ANTOINE Non-Admin Reason: Patient Refused Levofloxacin (Levaquin) 500 mg in 100 mls @ 100 mls/hr IV Q24H [facility] Last Infusion: 05/18/24 11:07 Dose: Infused Documented By: DONNA Metronidazole (Flagyl) 500 mg in 100 mls @ 100 mls/hr IV Q8H [facility] Last Admin: 05/19/24 10:18 Dose: 100 mls/hr Documented By: SKIP Lactated Ringer's (Lr) 1,000 mls @ 100 mls/hr IVCONT .Q10H [facility] Last Admin: 05/19/24 02:52 Dose: 100 mls/hr Documented By: AIDENILDanielle Levothyroxine Sodium (Levothyroxine Sodium 25 Mcg Tablet) 25 mcg PO DAILY@0600 [facility] Last Admin: 05/19/24 05:42 Dose: Not Given Documented By: ANNETTE Non-Admin Reason: took her own Magnesium Hydroxide (Milk Of Magnesia 30 Ml Oral.Susp) 30 ml PO DAILY PRN PRN Reason: Constipation Melatonin (Melatonin 3 Mg Tablet) 6 mg PO BEDTIME PRN PRN Reason: Insomnia Morphine Sulfate (Morphine Sulfate 4 Mg/Ml Cartridge) 4 mg IVPUSH Q4H PRN; Protocol PRN Reason: Pain, Severe (Pain Scale 7-10) Last Admin: 05/19/24 10:29 Dose: 4 mg Documented By: SKIP Pt Owned ( Lamotrigine 5 Mg Tablet, Chewable Dispersible) 5 mg PO BEDTIME [facility] Last Admin: 05/18/24 21:22 Dose: 5 mg Documented By: ANNETTE Pt Owned Med ( Norgestimate-Ethinyl Estradiol [Sprintec (28)] 0.25-35 Mg- Mcg Ta 1 tab PO BEDTIME [facility] Last Admin: 05/18/24 21:22 Dose: 1 tab Documented By: ANNETTE Ondansetron HCl (Ondansetron Hcl 4 Mg/2 Ml Vial) 4 mg IVPUSH Q8H PRN PRN Reason: Nausea and Vomiting Last Admin: 05/19/24 09:05 Dose: 4 mg Documented By: SKIP Oxycodone HCl (Oxycodone Hcl Immed Release 5 Mg Tablet) 5 mg PO Q6H PRN PRN Reason: Pain, Moderate(Pain Scale 4-6) Sodium Chloride (0.9 % Sodium Chloride Flush 3 Ml Syringe) 3 ml IVFLUSH QSHIFT [facility] Last Admin: 05/19/24 08:20 Dose: Not Given Documented By: SKIP Non-Admin Reason: IV Running Vancomycin HCl (Vancomycin Hcl 125 Mg Capsule) 125 mg PO Q6H [facility] Last Admin: 05/19/24 05:43 Dose: 125 mg Documented By: ANNETTE Labs 05/18/24 05:37 05/18/24 05:37 Assessment and Plan (1) Colitis: Status: Acute Assessment and Plan: 39-year-old female with a past medical history significant for hypothyroidism, hepatitis-C (treated) and mood disorder, admitted for colitis. 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 Quality Stroke Does the patient have a stroke diagnosis?: No VTE Prior VTE?: No VTE Risk Level:: Medical - moderate - high VTE Device Contraindication: Treatment Not Indicated VTE Drug Contraindication: N/A - Med Ordered
[2024-05-19] MEDS: levoFLOXacin/D5W 500 MG/100 ML PIGGYBACK 100 MG IV (11:44)
[2024-05-19] MEDS: Potassium Chloride ER 20 MEQ TAB.ER.PRT PO (11:51)
[2024-05-19 15:18] VITALS: BP 109/63; PULSE 60; RESP 14; TEMP 37.1; O2SAT 99
[2024-05-19] MEDS: Dextrose 5 % and 0.9 % NaCl 1,000 ML 80 ML IVCONT (17:11)
[2024-05-19 19:18] VITALS: BP 106/60; PULSE 59; RESP 16; TEMP 37.1; O2SAT 96
[2024-05-19] MEDS: ETHINYL ESTRADIOL PO (20:15)
[2024-05-19] MEDS: LAMOTRIGINE 5 MG 5 EACH PO (20:15)
[2024-05-19] MEDS: NORGESTIMATE PO (20:15)
[2024-05-19] MEDS: 0.9 % Sodium Chloride Flush 3 ML SYRINGE IVFLUSH (20:16)
[2024-05-20] MEDS: ondansetron HCL 4 MG/2 ML VIAL IVPUSH (00:01)
[2024-05-20] MEDS: vancomycin HCL 125 MG CAPSULE PO ×5 (00:01→23:47)
[2024-05-20 03:06] VITALS: BP 95/59; PULSE 59; RESP 16; TEMP 36.2; O2SAT 96
[2024-05-20] MEDS: metroNIDAZOLE/NS 500 MG/100 ML PIGGYBACK 100 MG IV (03:34)
[2024-05-20] MEDS: Dextrose 5 % and 0.9 % NaCl 1,000 ML 80 ML IVCONT (06:01)
[2024-05-20] MEDS: Levothyroxine Sodium 25 MCG TABLET PO (06:03)
[2024-05-20 07:32] VITALS: BP 104/63; PULSE 67; RESP 14; TEMP 36.9; O2SAT 97
[2024-05-20 08:23] LABS: Anion Gap 12 (12-20); Blood Urea Nitrogen < 3 mg/dL (9-16); Calcium 8.7 mg/dL (8.4-10.2); Carbon Dioxide 25 mmol/L (22-29); Chloride 107 mmol/L (96-108); Creatinine Clr Calc Pharmacy 100.5; Estimated Glomerular Filt Rate > 60; Glucose Random 96 mg/dL (60-115); Sodium 141 mmol/L (135-145)
[2024-05-20] MEDS: Potassium Chloride ER 20 MEQ TAB.ER.PRT 40 MEQ PO (09:53)
[2024-05-20] MEDS: levoFLOXacin/D5W 500 MG/100 ML PIGGYBACK 100 MG IV (09:53)
--- NOTE | 2024-05-20 12:39 | HO.PM.IMPN ---
Subjective Subjective Date of Service: 05/20/24 Interval History: abd pain Review of Systems denies diarrhae abd pain somewhat improving , still hesitant to take po regular food. no fevers Physical Exam Vital Signs: Vital Signs: Last Vital Signs Temp 98.5 F 05/20/24 07:32 Pulse 67 05/20/24 07:32 Resp 14 05/20/24 07:32 BP 104/63 05/20/24 07:32 Pulse Ox 97 05/20/24 07:32 O2 Del Method Room Air 05/20/24 07:32 O2 Flow Rate 2 05/17/24 14:54 BMI result Body Mass Index 22.9 General: AOx3, no acute distress Resp: CTA bilaterally CVS: S1, S2, RRR GI: +BS, generalized tenderness throughout, no distention Skin: Warm, dry Extremities: No edema Psych: Appropriate affect. Objective Data Active Medications Acetaminophen (Acetaminophen 325 Mg Tablet) 650 mg PO Q6H PRN PRN Reason: Pain, Mild (Pain Scale 1-3), fever or headache Calcium Carbonate (Calcium Carbonate 750 Mg Tab.Chew) 750 mg PO Q4H PRN PRN Reason: Heartburn Last Admin: 05/18/24 10:19 Dose: 750 mg Documented By: DONNA Enoxaparin Sodium (Enoxaparin Sodium 40 Mg/0.4 Ml Syringe) 40 mg SUBCUT Q24H [facility] Last Admin: 05/16/24 11:36 Dose: Not Given Documented By: ANTOINE Non-Admin Reason: Patient Refused Dextrose/Sodium Chloride (D5ns) 1,000 mls @ 80 mls/hr IVCONT .[id number] [facility] Last Infusion: 05/20/24 11:36 Dose: 0 mls/hr Documented By: SKIP Levothyroxine Sodium (Levothyroxine Sodium 25 Mcg Tablet) 25 mcg PO DAILY@0600 [facility] Last Admin: 05/20/24 06:03 Dose: 25 mcg Documented By: VALERIA Magnesium Hydroxide (Milk Of Magnesia 30 Ml Oral.Susp) 30 ml PO DAILY PRN PRN Reason: Constipation Melatonin (Melatonin 3 Mg Tablet) 6 mg PO BEDTIME PRN PRN Reason: Insomnia Morphine Sulfate (Morphine Sulfate 4 Mg/Ml Cartridge) 4 mg IVPUSH Q4H PRN; Protocol PRN Reason: Pain, Severe (Pain Scale 7-10) Last Admin: 05/19/24 22:35 Dose: 4 mg Documented By: VALERIA Pt Owned ( Lamotrigine 5 Mg Tablet, Chewable Dispersible) 5 mg PO BEDTIME [facility] Last Admin: 05/19/24 20:15 Dose: 5 mg Documented By: VALERIA Pt Owned Med ( Norgestimate-Ethinyl Estradiol [Sprintec (28)] 0.25-35 Mg- Mcg Ta 1 tab PO BEDTIME [facility] Last Admin: 05/19/24 20:15 Dose: 1 tab Documented By: VALERIA Ondansetron HCl (Ondansetron Hcl 4 Mg/2 Ml Vial) 4 mg IVPUSH Q8H PRN PRN Reason: Nausea and Vomiting Last Admin: 05/20/24 00:01 Dose: 4 mg Documented By: VALERIA Oxycodone HCl (Oxycodone Hcl Immed Release 5 Mg Tablet) 5 mg PO Q6H PRN PRN Reason: Pain, Moderate(Pain Scale 4-6) Sodium Chloride (0.9 % Sodium Chloride Flush 3 Ml Syringe) 3 ml IVFLUSH QSHIFT [facility] Last Admin: 05/20/24 09:18 Dose: Not Given Documented By: SKIP Non-Admin Reason: IV Running Vancomycin HCl (Vancomycin Hcl 125 Mg Capsule) 125 mg PO Q6H [facility] Last Admin: 05/20/24 11:57 Dose: 125 mg Documented By: SKIP Labs 05/18/24 05:37 05/20/24 07:12 Labs: Laboratory Results - last 24 hr 05/20/24 07:12 Anion Gap 12 Estim Creat Clear Calc 100.5 Estimated GFR > 60 Random Glucose 96 Calcium 8.7 Assessment and Plan (1) Colitis: Status: Acute Assessment and Plan: 39-year-old female with a past medical history significant for hypothyroidism, hepatitis-C (treated) and mood disorder, admitted for colitis. Colitis - infectious vs IBD - leukocytosis improved - electrolytes improved - sigmoidoscopy yesterday with left-sided colitis sparing the rectum, biopsies pending - stool panel negative, CRP elevated, IBD studies pending - continue levaquin and Flagyl - add dicyclomine TID PRN for abdominal cramping on discharge - advance to bland diet when appropriate, if tolerated can go home Gi saw patient s//p colonoscopy-has finding's of pseudomembranous colitis /ischemic colitis :already got 5 days levaquin/flagyl. 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 Quality Stroke Does the patient have a stroke diagnosis?: No VTE Prior VTE?: No VTE Risk Level:: Medical - moderate - high VTE Device Contraindication: Treatment Not Indicated VTE Drug Contraindication: N/A - Med Ordered
[2024-05-20 15:24] VITALS: BP 111/66; PULSE 93; RESP 16; TEMP 37; O2SAT 97
[2024-05-20] MEDS: 0.9 % Sodium Chloride Flush 3 ML SYRINGE IVFLUSH ×2 (15:50→21:42)
[2024-05-20 19:55] VITALS: BP 113/70; PULSE 78; RESP 16; TEMP 37; O2SAT 95
[2024-05-20] MEDS: LAMOTRIGINE 5 MG 5 EACH PO (21:40)
[2024-05-20] MEDS: NORGESTIMATE PO (21:41)
[2024-05-20] MEDS: ETHINYL ESTRADIOL PO (21:41)
[2024-05-21 03:26] VITALS: BP 104/61; PULSE 70; RESP 16; TEMP 37.2; O2SAT 94
[2024-05-21] MEDS: ondansetron HCL 4 MG/2 ML VIAL IVPUSH (04:17)
[2024-05-21] MEDS: Morphine Sulfate 4 MG/ML CARTRIDGE IVPUSH (04:17)
[2024-05-21] MEDS: Levothyroxine Sodium 25 MCG TABLET PO (05:54)
[2024-05-21] MEDS: vancomycin HCL 125 MG CAPSULE PO (05:54)
[2024-05-21 08:00] VITALS: BP 101/60; PULSE 57; RESP 18; TEMP 37; O2SAT 99
[2024-05-21] MEDS: 0.9 % Sodium Chloride Flush 3 ML SYRINGE IVFLUSH (08:45)
[2024-05-21 09:22] LABS: Potassium 3.5 mmol/L (3.3-5.1)
--- NOTE | 2024-05-21 10:18 | PM.DS ---
DS: Providers Provider Date of Service: 05/21/24 Date of admission: 05/15/24 11:08 Date of discharge: 05/21/24 Primary care physician: Rachelle Acuna MD Consults: 05/15/24 11:15 Consult to Gastroenterology Routine Consulting Provider: Rasheed Allan Reason for consultation: colitis on CT Has provider been notified: No Attending physician on discharge: Toribio Lema Discharging clinician: Gurwinder Lema DS: Diagnosis Discharge Diagnosis (1) Colitis: Status: Acute DS: Summary Hospital Course Hospital Course: HPI:39-year-old female with a past medical history significant for hypothyroidism, hepatitis-C (treated) and mood disorder, presented to the ED with hematochezia, diarrhea and abdominal cramping. She reports severe diarrhea starting 05/01 and the following day she had abdominal soreness and soft stool for a few days. The diarrhea then returned and last night around 21:00 became much more significant, at least 10 episodes overnight with bright red blood and severe abdominal cramping, rating it a 6/10 at rest and intermittent sharp 10/10 cramping. She denies any previous history of similar. No recent travel or antibiotics. She does report that there has been a sandwich leak at her apartment and showed videos of switch coming out of her ventilation from the upstairs neighbor. She reports there may have been some contamination with using basins to catch the weeks. She has been practicing good hand hygiene. She also complains of sweats, weakness and dizziness. Hospital course: patient was admitted for abdominal pain and diarrhea: Found to have leukocytosis, CT abdomen showed possible colitis-GI panel and c diff sent ,started on iv antibiotics ,Gi consulted : s/p colonoscopy as well as IBD SGI markers pending : on Gi pathology report has possible pseumembranous colitis ,started on vanco 125 mg qid for 10 days. esr normal, crp elevated 5.6. acute hypokalemia -repleted and resolved. follow up with Gi and pcp outpatient. plan: complete vanco 125 mg qid for 9 more days. added potassium 10 meq po daily for 4 days. moniter bmp ,crp in 1 week. follow up with Gi and pcp outpatient. Assessment and plan coordination time spent 40 minute, discussed with both patient and her mother at bedside in detail they both understand and in agreement with the above plan. Time Attestation Total time managing care of this patient today: 40 mintues. Discharge Coordination Time (in mins): 40 min Quality: Safe Use of Opioids Does Pt have an Active Cancer Diagnosis on the Problem List?: No Quality: Stroke Does the patient have a stroke diagnosis?: No Physical Exam Vital Signs: Vital Signs: Last Vital Signs Temp 98.6 F 05/21/24 08:00 Pulse 57 05/21/24 08:00 Resp 18 05/21/24 08:00 BP 101/60 05/21/24 08:00 Pulse Ox 99 05/21/24 08:00 O2 Del Method Room Air 05/21/24 08:00 O2 Flow Rate 2 05/17/24 14:54 BMI result Body Mass Index 22.9 General: AOx3, no acute distress Resp: CTA bilaterally CVS: S1, S2, RRR GI: +BS, nt , no distention, no rebound or guarding Skin: Warm, dry Extremities: No edema Psych: Appropriate affect. DS: Data Data Completed and Pending Completed studies during hospitalization [Text1]: Pending at discharge 05/17/24 14:38 Surgical [PTH] Routine Labs on day of discharge: Laboratory Results - last 24 hr 05/21/24 08:35 Potassium 3.5 Imaging Chest x-ray: Radiologist's impression: ITS Impressions Abdomen/Pelvis CT 05/15/24 07:46 IMPRESSION: Consider inflammatory bowel disease such as Crohn's disease and less likely ulcerative colitis in the correct clinical settings. Discussed with the emergency physician Dr. Bonilla at 8:40 AM. Fleischner guidelines were followed. Electronically signed by: Rigo Ye MD 05/15/2024 08:47 AM [facility] Discharge Plan Discharge Anticipated Discharge Date/Time: 05/21/24 09:41 Patient Disposition: Home, Self-Care Discharge Diagnosis: pseudomembranous colitis Referrals: Rachelle Acuna MD [Primary Care Provider] - 1 Week Discharge Medications: New vancomycin 125 mg Capsule 125 mg PO Q6H Qty: 36 0RF ondansetron HCl 4 mg tablet 4 mg PO Q8H PRN (Reason: nausea and vomiting) Qty: 10 0RF acetaminophen 325 mg Tablet 650 mg PO Q6H PRN (Reason: Pain, Mild (Pain Scale 1-3), fever or headache) Qty: 10 0RF oxycodone 5 mg Tablet 5 mg PO Q6H PRN (Reason: Pain, Moderate(Pain Scale 4-6)) Qty: 10 0RF Rx Instructions: Partial Fill upon patient request. potassium chloride 10 mEq capsule, extended release 10 meq PO DAILY Qty: 4 0RF Continued norgestimate-ethinyl estradiol [Sprintec (28)] 0.25-35 mg-mcg tablet 1 tab PO BEDTIME levothyroxine 25 mcg tablet 25 mcg PO DAILY@0600 lamotrigine 5 mg tablet, chewable dispersible 5 mg PO BEDTIME Discharge Orders: Discharge Order (Routine); Ordered 05/21/24 Ordered By: Toribio Lema Diet: Advance to usual diet Activity on Discharge: As tolerated Stand Alone Forms: Patient Portal Discharge page Print Language: Citizen [place] Care Plan Goals: patient was admitted for abdominal pain and diarrhea: Found to have leukocytosis, CT abdomen showed possible colitis-GI panel and c diff sent ,started on iv antibiotics ,Gi consulted : s/p colonoscopy as well as IBD SGI markers pending : on Gi pathology report has possible pseumembranous colitis ,started on vanco 125 mg qid for 10 days. hypokalemia -repleted and resolved. follow up with Gi and pcp outpatient. Health Concerns: as above. Plan of Treatment: complete vanco 125 mg qid for 9 more days. added potassium 10 meq po daily for 4 days. moniter bmp in 1 week. follow up with Gi( Dr Allan's office) and pcp outpatient. Assessment: as above. Discharge Date/Time: 05/21/24 11:47
--- NOTE | 2024-05-21 17:49 | PC.NURSE ---
I cared for pt from 1900 to 0700 on May 18 and hosiery operator. Pt did not want tylenol adn oxycodone but morphne for pain. He pain level was above 7 because she was having nausea as well.
== END 2024-05-21 11:47 | disposition home or self-care (01) | DRG 378 ==
LOC: HO.ED 09:34 → HO.EDOVER 11:15 → HO.S3 05-16 12:39
PROVIDERS: Internal Medicine Gastroenterology; Admitting Provider Physician Assistant; Emergency Provider Emergency Medicine; PCP Internal Medicine; Visit Provider Internal Medicine
PROC: 0DJD8ZZ Inspection of Lower Intestinal Tract, Via Natural or Artificial Opening Endoscopic (ICD-10-PCS; CPT 45330; principal; 2024-05-17 14:00)
DX: K57.31 Diverticulosis of large intestine without perforation or abscess with bleeding (principal); A04.72 Enterocolitis due to Clostridium difficile, not specified as recurrent; E03.9 Hypothyroidism, unspecified; E87.6 Hypokalemia; Z87.891 Personal history of nicotine dependence; B19.20 Unspecified viral hepatitis C without hepatic coma; Z79.890 Hormone replacement therapy; Z79.899 Other long term (current) drug therapy
CPT/HCPCS: 36415; 74177; 80048; 80053; 81001; 81025; 81405; 81479; 82272; 82397; 83520; 83690; 84132; 85025; 85652; 86140; 87493; 87507; 88305; 88346; 88350; 93005; 99285; J1650; J1836; J1956; J2003; J2250; J2270; J2405; J2704; J3010; J7120; Q9967

== ENCOUNTER → 2024-05-15 07:09 | Outpatient (BNV) | payer MEDICARE, MEDICAID, SELFPAY | PROVIDERS: Emergency Provider Emergency Medicine; PCP Internal Medicine; Visit Provider Radiology Diagnostic Radiology | DX: R10.9 Unspecified abdominal pain (principal) | CPT/HCPCS: 74177 ==

== ENCOUNTER 2024-05-15 11:08 | Outpatient (BNV) | payer MEDICARE, MEDICAID, SELFPAY | END 2024-05-15 12:05 | PROVIDERS: Admitting Provider Physician Assistant; Emergency Provider Emergency Medicine; PCP Internal Medicine; Visit Provider Internal Medicine Cardiovascular Disease | DX: R10.9 Unspecified abdominal pain (principal) | CPT/HCPCS: 93010 ==

== ENCOUNTER → 2024-05-15 11:08 | Outpatient (BNV) | payer MEDICARE, MEDICAID, SELFPAY | PROVIDERS: Admitting Provider Physician Assistant; Emergency Provider Emergency Medicine; PCP Internal Medicine; Visit Provider Physician Assistant | DX: K52.9 Noninfective gastroenteritis and colitis, unspecified (principal) | CPT/HCPCS: 99222; 99231; 99232; 99239 ==

== ENCOUNTER → 2024-05-15 11:08 | Outpatient (BNV) | payer MEDICARE, MEDICAID, SELFPAY | PROVIDERS: Admitting Provider Physician Assistant; Emergency Provider Emergency Medicine; PCP Internal Medicine; Visit Provider Internal Medicine Gastroenterology | DX: K52.9 Noninfective gastroenteritis and colitis, unspecified (principal); K57.30 Diverticulosis of large intestine without perforation or abscess without bleeding; K92.1 Melena; R93.3 Abnormal findings on diagnostic imaging of other parts of digestive tract | CPT/HCPCS: 45380; 99222 ==

== ENCOUNTER 2024-06-21 13:30 | Outpatient (AMB) | payer MEDICARE, MEDICAID, SELFPAY ==
--- NOTE | 2024-06-21 13:30 | A.OFFVIS_ITS ---
Intake Visit Reasons: Sigmoidoscopy result/ post hospitalization Intake Note: Tomeka presents as a telehealth to go over results to her sigmoidoscopy. CC: She states that she is not having any concerns at this time. Allergies minocycline Allergy (Mild, Verified 06/21/24 13:31) Unknown prochlorperazine [From Compazine] Allergy (Verified 06/21/24 13:31) Rash Medication List - Last Reconciled 06/21/24 by Rasheed Allan MD acetaminophen 650 mg (2 x 325 mg) PO Q6H PRN lamotrigine 5 mg PO BEDTIME levothyroxine 25 mcg PO DAILY@0600 norgestimate-ethinyl estradiol 0.25-35 mg-mcg (Sprintec (28)) 1 tab PO BEDTIME ondansetron HCl 4 mg PO Q8H PRN oxycodone 5 mg PO Q6H PRN potassium chloride ER 10 mEq PO DAILY HPI HPI Sigmoidoscopy result/ post hospitalization: Details: Telemedicine visit for this 39-year-old female for follow-up after recent hospitalization TODAY'S VISIT: Tomeka presents as a telehealth to go over results to her sigmoidoscopy. CC: She states that she is not having any concerns at this time. Denies diarrhea and reports having a formed and soft BM daily or every other day Previously had a BM daily to every other day - diagnosed with IBS with constipation. She was prescribed Linzess and did not take it (does not like to take medications) Notes intermittent abdominal pain 3-4 times a week lasting over several hours in diffrent locations Denies association with food intake. Unclear if pain resolves after she has a BM. Taking Probiotics Eating a bland diet - chicken, bone broth, green beans, peas, oat meal and bananas. Had a little bit of stomach acid infrequently She takes acetaminophen prn for aches and pains Family hx if positive for self limited colitis in her Mom, Maternal GM had diverticulitis and Maternal GGM had colon cancer. Pt denies know FH of IBD. Pt is disabled and lives by herself in an apartment (Mom lives in the same [facility] building). LABS IN [facility] : REVIEWED IMAGING STUDIES: 05/15/[address] SCAN SHOWED: GASTROINTESTINAL TRACT: Segmental concentric wall thickening, descending colon and segments of the edematous wall in the distal ileal loops. No intestinal obstruction pattern. No pneumatosis intestinalis. Appendix is normal. No ascites. An edematous mesentery . No pneumoperitoneum. ENDOSCOPIC STUDIES: 05/17/24 FLEXIBLE SIGMOIDOSCOPY SHOWED: Flexible sigmoidoscopy Findings: Edema, erythema and ulcerations with scattered white exudate/pseudomembranes extending from 20 to 50 cms and extending proximally - multiple biopsies were o btained. There was scattered stool and some old blood coating the vernon of the sigmoid colon. Stool specimen collected and sent for C Diff toxin and Gi panel No polyps were detected Moderate diverticulosis seen in the sigmoid colon Plan: 1. Continue IV pain medications, anti-emetics prn and antibiotics until biopsy results are available, 2. Full liquid diet - order placed and advance diet as tolerated. 3. Repeat CRP and check IBD serology - added to am labs Above findings were reviewed with the patient and her Mom. BIOPSIES SHOWED: A. Colon, sigmoid, biopsy: Acute ischemic colitis, patchy, with mucosal erosion and pseudomembrane formation (see comment). B. Rectum, biopsy: Colonic mucosa within normal limits; negative for active, chronic or microscopic colitis. COMMENT (A): The differential diagnosis includes ischemic colitis and pseudomembranous colitis (C. difficile-associated). Clinical correlation is suggeste PAST GI HISTORY BY REVIEW OF MEDICAL RECORDS: 05/15/24 PT WAS SEEN IN CONSULTATION: 39 YF with hx of hypothyroidism, hepatitis-C (treated) and mood disorder seen at [facility] on 05/15/24 with hematochezia, diarrhea and abdominal cramping. Pt reports severe watery, non bloody diarrhea starting 05/01 which resolved after 1-2 days. Since then she has noted some mild abdominal soreness. Last night at around 9 pm, she noted 7-8/10 lower abdominal pain with waves of cramping and loose to watery diarrhea with blood mixed with stools. Pt reports having at least 10 episodes of diarrhea with bright red blood. Pain is worse when she sits up or lies on her side. Pt complains of nausea, chills and sweating, weakness and dizziness and denies fever or vomiting. She denies any change in appetite or weight. Pt gives a hx of mouth ulcers in the past and denies Jt pains or skin rash She denies any history of similar symptoms in the past. No recent travel or antibiotics. She does report that there has been a double end sewer leak at her apartment and showed videos of stuff coming out of her ventilation from the upstairs neighbor. She reports there may have been some contamination with using basins to catch the leak. She has been practicing good hand hygiene. Pt denies smoking, ETOH or Marijuana or NSAID use. Plan 39 YF with hx of hypothyroidism, hepatitis-C (treated) and mood disorder admitted to [facility] on 05/15/24 with hematochezia, diarrhea and abdominal cramping. Pt complains of nausea, chills and sweating, weakness and dizziness and denies fever or vomiting. Pt gives a hx of mouth ulcers off and on in the past. Pt denies smoking, ETOH or Marijuana or NSAID use. Abd CT scan showed segmental concentric wall thickening involving the descending colon and segments of edematous wall in the distal ileal loops. Pt symptoms are likely due to infectious or ischemic colitis versus subacute presentation of IBD. Labs show elevated white count and CRP of 1.11. RECOMMENDATIONS: 1. Agree with IV antibiotics, pain medications and anti-emetics 2. Await results of stool studies 3. If stool cultures are negative, I will schedule her for a colonoscopy for further evaluation. [facility] Medical History Hypothyroid Hepatitis C Anxiety Surgical History History of sigmoidoscopy History of liver biopsy History of lymph node dissection of left axilla Hx of wisdom tooth extraction Social History Household Members: None Housing: Apartment Are you a primary personal care worker to a significant other at home: No Do you presently have visiting nurse or other home services: No Patient Tobacco Use Status: Former Tobacco user service: No Review of Systems Const All systems reviewed & are unremarkable except as noted in HPI and below Telehealth Telehealth Telehealth Platform: Telephone Location of provider rendering services: practice address Location of patient: address on file Patient Identification confirmed using: Name, : Yes Telehealth method: voice only Patient verbally consented to treatment: Yes Patient verbally consented to billing insurance company: Yes Patient informed of any privacy concerns related to visit: Yes Minutes spent on Phone/Video with Pt.: 25 Assessment & Plan Assessment & Plan (1) Colitis: Code(s): K52.9 - Noninfective gastroenteritis and colitis, unspecified Category: Medical Plan 39 YF with hx of hypothyroidism, hepatitis-C (treated) and mood disorder hostpitalized at [facility] 05/15/24 to 05/21/24 with hematochezia, diarrhea and abdominal cramping. Pt gave a hx of mouth ulcers off and on in the past and denied smoking, ETOH or Marijuana or NSAID use. Abd CT scan showed segmental concentric wall thickening involving the descending colon and segments of edematous wall in the distal ileal loops. Labs show elevated white count and CRP of 1.11. Flexible sigmoidoscopy showed Edema, erythema and ulcerations with scattered white exudate/pseudomembranes extending from 20 to 50 cms and extending proximally Stool specimen collected and sent for C Diff toxin and Gi panel - which was negative IBD serology - were negative for Crohn's disease or ulcerative colitis BIOPSIES SHOWED: A. Colon, sigmoid, biopsy: Acute ischemic colitis, patchy, with mucosal erosion and pseudomembrane formation (see comment). B. Rectum, biopsy: Colonic mucosa within normal limits; negative for active, chronic or microscopic colitis. COMMENT (A): The differential diagnosis includes ischemic colitis and pseudomembranous colitis (C. difficile-associated). 06/21/24 Pt denies diarrhea and reports having a formed BM daily and inter mittent abd pain. Chronic nausea which she notes she had prior to the episode of colitis and is unchanged Taking probiotics and staying on a bland diet Patient was advised to continue taking probiotics daily x 3 months Offered a prescription for Dicyclomine for abdominal pain which she declined Pt handout on IBS mailed to the pt with the [facility] appt in 3 months Orders: Orders C Reactive Protein Today K52.9 - Noninfective gastroenteritis and colitis, unspecified Vitamin B12 and Folate Today K52.9 - Noninfective gastroenteritis and colitis, unspecified Vitamin D 25-OH Total Today K52.9 - Noninfective gastroenteritis and colitis, unspecified IRON PROFILE Today K52.9 - Noninfective gastroenteritis and colitis, unspecified Ferritin Today K52.9 - Noninfective gastroenteritis and colitis, unspecified Transglutaminase IgA Today K52.9 - Noninfective gastroenteritis and colitis, unspecified Complete Blood Count Auto Diff Today K52.9 - Noninfective gastroenteritis and colitis, unspecified Immunoglobulin A Today K52.9 - Noninfective gastroenteritis and colitis, unspecified Coding Level of Care Code Tele Est Pt Level 3 (60140) Diagnoses Colitis K52.9 Time Spent (min) 25
== END 2024-06-21 14:33 | disposition home or self-care (01) ==
LOC: HO.HGI 13:30
PROVIDERS: PCP Internal Medicine; Visit Provider Internal Medicine Gastroenterology
DX: K52.9 Noninfective gastroenteritis and colitis, unspecified (principal)
CPT/HCPCS: 99443

== ENCOUNTER → 2024-06-21 13:30 | Outpatient (BNVA) | payer MEDICARE, MEDICAID, SELFPAY | PROVIDERS: PCP Internal Medicine; Visit Provider Internal Medicine Gastroenterology ==

== ENCOUNTER 2024-07-18 15:30 | Outpatient (REF) | payer MEDICARE, MEDICAID, SELFPAY ==
[2024-07-18 15:52] LABS: MANUAL DIFF FLAG NO
[2024-07-18 17:12] LABS: Basophils Absolute Auto 0.1 X10*3/uL (0.0-0.2); Basophils Percent Auto 0.9 % (0-2); Eosinophils Absolute Auto 0.1 X10*3/uL (0.0-0.4); Eosinophils Percent Auto 1.6 % (0-4); Hematocrit 41.5 % (37.0-47.0); Hemoglobin 13.8 g/dl (12.0-16.0); Imm Gran Abs Auto 0.02 X10*3/uL (0.00-0.03); Imm Gran Pct Auto 0.3 % (0.0-0.4); Lymphocytes Absolute Auto 2.3 X10*3/uL (1.2-4.9); Lymphocytes Percent Auto 33.2 % (20-40); Mean Corpuscular HGB Conc 33.3 g/dl (31.0-35.0); Mean Corpuscular Hemoglobin 29.7 pg (27.0-33.0); Mean Corpuscular Volume 89.2 fL (80.0-98.0); Mean Platelet Volume 12.5 fL (9.4-12.3); Monocytes Absolute Auto 0.7 X10*3/uL (0.1-1.2); Monocytes Percent Auto 9.9 % (2-11); Neutrophils Absolute Auto 3.7 x10*3/uL (2.0-8.3); Neutrophils Percent Auto 54.1 % (45-73); Platelet Count 217 X10*3/uL (160-400); Red Blood Count 4.65 X10*6/uL (4.20-5.50); Red Cell Distribution Width 11.7 % (11.0-16.0); White Blood Count 6.9 X10*3/uL (4.8-10.8)
[2024-07-18 17:51] LABS: C Reactive Protein 0.48 mg/dL (< or = 0.50); Iron 124 mcg/dL (30-160); Percent Iron Saturation 41 % (15-50); Total Iron Binding Capacity 304 mcg/dL (228-428); Unsaturated Iron Binding 180 ug/dL
[2024-07-18 18:06] LABS: Ferritin 51 ng/mL (10-122); Vitamin D 25-OH Total 45.9 ng/mL (>30)
[2024-07-18 18:19] LABS: Vitamin B12 260 pg/mL (200-900)
[2024-07-19 19:14] LABS: Immunoglobulin A 210 mg/dL (47-310)
[2024-07-19 21:53] LABS: Transglutaminase IgA <1.0 U/mL
== END 2024-07-18 15:31 | disposition home or self-care (01) ==
LOC: HO.LAB 15:30
PROVIDERS: PCP Internal Medicine; Visit Provider Internal Medicine Gastroenterology
DX: K52.9 Noninfective gastroenteritis and colitis, unspecified (principal)
CPT/HCPCS: 36415; 82306; 82607; 82728; 82746; 82784; 83540; 85025; 86140; 86364

== ENCOUNTER 2024-09-27 11:56 | Outpatient (AMB) | payer MEDICARE, MEDICAID, SELFPAY ==
--- NOTE | 2024-09-27 12:16 | A.OFFVIS_ITS ---
Vital Signs 09/27/24 12:45 Height 5 ft 2 in Weight 119 lb BMI 21.8 BP 115/66 Blood Pressure Location Lt brachial Position Sitting Pulse 86 Intake Visit Reasons: 3 mo f/u Colitis Intake Note: Patient 3 month follow up for Colitis and lab result. Patient cc: abdominal discomfort with bloating, diarrhea, denies any other GI issues for today. Accreditation Manager Required: No Accompanied by: Self / Same As Patient Allergies minocycline Allergy (Mild, Verified 09/27/24 12:24) Unknown prochlorperazine [From Compazine] Allergy (Verified 09/27/24 12:24) Rash Medication List - Last Reconciled 09/27/24 by Rasheed Allan MD lamotrigine 5 mg PO BEDTIME levothyroxine 25 mcg PO DAILY@0600 norgestimate-ethinyl estradiol 0.25-35 mg-mcg (Sprintec (28)) 1 tab PO BEDTIME HPI HPI 3 mo f/u Colitis: Details: GI Clinic visit for this 39-year-old female for follow-up after hospitalization for colitis in 05/2025 TODAY'S VISIT: Patient 3 month follow up for Colitis and lab result. Patient cc: abdominal discomfort with bloating, diarrhea, denies any other GI issues for today. Still having stomach issues, having rashes and diarrhea. Has a BM 1 to 3 times a day with gritty stools which are not formed. Denies any blood or mucous in the stool. Gets nausea once in a while and has a good appetite. Can get nausea when stomach is acting up the most. Has pain and discomfort in the abdomen lately Unsure what triggers the abdominal pain. Tapered off the probiotics - and things started to go downhill/was adding some foods back Takes oatmeal for breakfast with berries Avoids foods with preservatives which triggers her symptoms Lost some wt - unintentional Notes thick patches of skin which get flaky with scabs Itchy rash on the chest Denies any food allergies - allergic to red dye. Intermittent mouth ulcers - after hospitalization ? related to antibiotics. PAST VISITS Denies diarrhea and reports having a formed and soft BM daily or every other day Previously had a BM daily to every other day - diagnosed with IBS with constipation. She was prescribed Linzess and did not take it (does not like to take medications) Notes intermittent abdominal pain 3-4 times a week lasting over several hours in different locations Denies association with food intake. Unclear if pain resolves after she has a BM. Taking Probiotics Eating a bland diet - chicken, bone broth, green beans, peas, oat meal and bananas. Had a little bit of stomach acid infrequently She takes acetaminophen prn for aches and pains Family hx if positive for self limited colitis in her Mom, Maternal GM had diverticulitis and Maternal GGM had colon cancer. Pt denies know FH of IBD. Pt is disabled and lives by herself in an apartment (Mom lives in the same [facility] building). LABS IN [facility] : REVIEWED IMAGING STUDIES: 05/15/[address] SCAN SHOWED: GASTROINTESTINAL TRACT: Segmental concentric wall thickening, descending colon and segments of the edematous wall in the distal ileal loops. No intestinal obstruction pattern. No pneumatosis intestinalis. Appendix is normal. No ascites. An edematous mesentery . No pneumoperitoneum. ENDOSCOPIC STUDIES: 05/17/24 FLEXIBLE SIGMOIDOSCOPY SHOWED: Flexible sigmoidoscopy Findings: Edema, erythema and ulcerations with scattered white exudate/pseudomembranes ext ending from 20 to 50 cms and extending proximally - multiple biopsies were obtained. There was scattered stool and some old blood coating the vernon of the sigmoid colon. Stool specimen collected and sent for C Diff toxin and Gi panel No polyps were detected Moderate diverticulosis seen in the sigmoid colon Plan: 1. Continue IV pain medications, anti-emetics prn and antibiotics until biopsy results are available, 2. Full liquid diet - order placed and advance diet as tolerated. 3. Repeat CRP and check IBD serology - added to am labs Above findings were reviewed with the patient and her Mom. BIOPSIES SHOWED: A. Colon, sigmoid, biopsy: Acute ischemic colitis, patchy, with mucosal erosion and pseudomembrane formation (see comment). B. Rectum, biopsy: Colonic mucosa within normal limits; negative for active, chronic or microscopic colitis. COMMENT (A): The differential diagnosis includes ischemic colitis and pseudomembranous colitis (C. difficile-associated). Clinical correlation is suggeste PAST GI HISTORY BY REVIEW OF MEDICAL RECORDS: 05/15/24 PT WAS SEEN IN CONSULTATION: 39 YF with hx of hypothyroidism, hepatitis-C (treated) and mood disorder seen at [facility] on 05/15/24 with hematochezia, diarrhea and abdominal cramping. Pt reports severe watery, non bloody diarrhea starting 10/29 which resolved after 1-2 days. Since then she has noted some mild abdominal soreness. Last night at around 9 pm, she noted 7-8/10 lower abdominal pain with waves of cramping and loose to watery diarrhea with blood mixed with stools. Pt reports having at least 10 episodes of diarrhea with bright red blood. Pain is worse when she sits up or lies on her side. Pt complains of nausea, chills and sweating, weakness and dizziness and denies fever or vomiting. She denies any change in appetite or weight. Pt gives a hx of mouth ulcers in the past and denies Jt pains or skin rash She denies any history of similar symptoms in the past. No recent travel or antibiotics. She does report that there has been a sewer repairer leak at her apartment and showed videos of stuff coming out of her ventilation from the upstairs neighbor. She reports there may have been some contamination with using basins to catch the leak. She has been practicing good hand hygiene. Pt denies smoking, ETOH or Marijuana or NSAID use. Plan 39 YF with hx of hypothyroidism, hepatitis-C (treated) and mood disorder admitted to [facility] on 05/15/24 with hematochezia, diarrhea and abdominal cramping. Pt complains of nausea, chills and sweating, weakness and dizziness and denies fever or vomiting. Pt gives a hx of mouth ulcers off and on in the past. Pt denies smoking, ETOH or Marijuana or NSAID use. Abd CT scan showed segmental concentric wall thickening involving the descending colon and segments of edematous wall in the distal ileal loops. Pt symptoms are likely due to infectious or ischemic colitis versus subacute presentation of IBD. Labs show elevated white count and CRP of 1.11. RECOMMENDATIONS: 1. Agree with IV antibiotics, pain medications and anti-emetics 2. Await results of stool studies 3. If stool cultures are negative, I will schedule her for a colonoscopy for further evaluation. COUNTS INCLUDE 234 BEDS AT THE [facility] Medical History Hypothyroid Hepatitis C Anxiety Surgical History History of sigmoidoscopy History of liver biopsy History of lymph node dissection of left axilla Hx of wisdom tooth extraction Social History Household Members: None Housing: Apartment Are you a primary caregivers homecare to a significant other at home: No Do you presently have visiting nurse or other home services: No Patient Tobacco Use Status: Former Tobacco user service: No Review of Systems Const All systems reviewed & are unremarkable except as noted in HPI and below Physical Exam Vital Signs: Last Vital Signs Pulse 86 09/27/24 12:45 BP 115/66 09/27/24 12:45 BMI result Body Mass Index 21.8 Const General: healthy appearing, no acute distress and anxious Nutritional Appearance: average body habitus Orientation/consciousness: patient oriented x3 Limitations: no limitations HEENT Head: Yes normal to inspection Ears: hearing grossly normal bilaterally Eyes Sclerae: sclerae normal Pupils: Equal, round and reactive pupils present Neck Neck: Yes normal visual inspection Chest Chest palpation & inspection: normal inspection of the chest Resp Effort & Inspection: normal respiratory effort Auscultation: clear to auscultation bilaterally Cardio Palpation: normal PMI Rate: regular rate Rhythm: regular rhythm Heart sounds: S1 normal heart sound present, S2 normal heart sound present and no murmurs GI Palpation (GI): Soft to palpation, Tenderness to palpation present (GI) (Mild lower abdominal tenderness) and No hepatosplenomegaly present Auscultation: normal bowel sounds Rectal Exam - Female: deferred Skin General skin exam: no rashes or lesions noted Neuro General: patient oriented x3, gait normal and moves all extremities Cranial nerves: Yes Equal, round and reactive pupils present Psych Appearance: grossly normal Mental Status: mental status grossly normal Assessment & Plan Assessment & Plan (1) Colitis: Code(s): K52.9 - Noninfective gastroenteritis and colitis, unspecified Category: Medical (2) Chronic diarrhea: Code(s): K52.9 - Noninfective gastroenteritis and colitis, unspecified Category: Medical Plan 39 YF with hx of hypothyroidism, hepatitis-C (treated) and mood disorder hostpitalized at [facility] 05/15/24 to 05/21/24 with hematochezia, diarrhea and abdominal cramping. Pt gave a hx of mouth ulcers off and on in the past and denied smoking, ETOH or Marijuana or NSAID use. Abd CT scan showed segmental concentric wall thickening involving the descending colon and segments of edematous wall in the distal ileal loops. Labs show elevated white count and CRP of 1.11. Flexible sigmoidoscopy showed Edema, erythema and ulcerations with scattered white exudate/pseudomembranes extending from 20 to 50 cms and extending proximally Stool specimen collected and sent for C Diff toxin and Gi panel - which was negative IBD serology - were negative for Crohn's disease or ulcerative colitis BIOPSIES SHOWED: A. Colon, sigmoid, biopsy: Acute ischemic colitis, patchy, with mucosal erosion and pseudomembrane formation (see comment). B. Rectum, biopsy: Colonic mucosa within normal limits; negative for active, chronic or microscopic colitis. COMMENT (A): The differential diagnosis includes ischemic colitis and pseudomembranous colitis (C. difficile-associated). 06/21/24 Pt denies diarrhea and reports having a formed BM daily and intermittent abd pain. Chronic nausea which she notes she had prior to the episode of colitis and is unchanged Taking probiotics and staying on a bland diet Patient was advised to continue taking probiotics daily x 3 months Offered a prescription for Dicyclomine for abdominal pain which she declined Pt handout on IBS mailed to the pt with the AVS 09/27/24 Still having stomach issues, having rashes and diarrhea. Has a BM 1 to 3 times a day with gritty stools which are not formed. Denies any blood or mucous in the stool. 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 Pt advised to check a fecal calprotectin and follow a FODMAP diet Fu appt in 3 month Orders: Orders Calprotectin, Fecal 09/28/24 K52.9 - Noninfective gastroenteritis and colitis, unspecified Coding Level of Care Code Est Pt Level 4 (18015) Diagnoses Colitis K52.9 Chronic diarrhea K52.9 Time Spent (min) 22
[2024-09-27 12:45] VITALS: BP 115/66; PULSE 86; BMI 21.8
== END 2024-09-27 13:45 | disposition home or self-care (01) ==
LOC: HO.HGI 11:57
PROVIDERS: PCP Internal Medicine; Visit Provider Internal Medicine Gastroenterology
DX: K52.9 Noninfective gastroenteritis and colitis, unspecified (principal)
CPT/HCPCS: 99214

== ENCOUNTER → 2024-09-27 11:56 | Outpatient (BNVA) | payer MEDICARE, MEDICAID, SELFPAY | PROVIDERS: PCP Internal Medicine; Visit Provider Internal Medicine Gastroenterology | DX: K52.9 Noninfective gastroenteritis and colitis, unspecified (principal) | CPT/HCPCS: 99212 ==

== ENCOUNTER 2024-09-28 12:11 | Outpatient (REF) | payer MEDICARE, MEDICAID, SELFPAY ==
[2024-10-04 20:50] LABS: Calprotectin, Fecal 12 mcg/g
== END 2024-09-28 12:12 | disposition home or self-care (01) ==
LOC: HO.LNP 12:11
PROVIDERS: Visit Provider Internal Medicine Gastroenterology
DX: K52.9 Noninfective gastroenteritis and colitis, unspecified (principal)
CPT/HCPCS: 83993

== ENCOUNTER 2025-01-10 12:54 | Outpatient (AMB) | payer MEDICARE, MEDICAID, SELFPAY ==
--- NOTE | 2025-01-10 13:04 | MHC.OFFVIS ---
Vital Signs 01/10/25 13:07 Height 5 ft 2 in Weight 116 lb 13.52 oz BMI 21.4 BP 113/74 Blood Pressure Location Lt brachial Position Sitting Pulse 71 Intake Visit Reasons: 3m colitis Intake Note: Tomeka presents in the office as a 3 month follow up for colitis. CC: She states that she is not having any concerns at this time. Evs Manager Required: No Allergies minocycline Allergy (Mild, Verified 01/10/25 13:08) Unknown prochlorperazine (From Compazine) Allergy (Verified 01/10/25 13:08) Rash Medication List - Last Reconciled 01/10/25 by Rasheed Allan MD lamotrigine 5 mg PO BEDTIME levothyroxine 25 mcg PO DAILY@0600 norgestimate-ethinyl estradiol 0.25-0.035 mg (Sprintec (28)) 1 tab PO BEDTIME HPI HPI 3m colitis: Details: GI Clinic visit for this 39-year-old female for follow-up after hospitalization for colitis in 05/2025 TODAY'S VISIT: Pt is accompanied by her Mom who is very supportive Tomeka presents in the office as a 3 month follow up for colitis. CC: She states that she is not having any concerns at this time. Feels a lot better - not completely normal and notices a big improvement. Notes a BM 1-2 times a day - mostly formed and sometimes loose (can be diet related) Denies any skin rash - notes a reddish lesion in the back - sore to touch. Appetite is good and nausea when she eats Was on a bland diet for 6 weeks Getting Factor meals 4 times a week and doing Ok with them Ate Popcorns with coconut oil and salt Took probiotics (Florastor) and discontinued taking them since she is feeling better. PAST VISITS Still having stomach issues, having rashes and diarrhea. Has a BM 1 to 3 times a day with gritty stools which are not formed. Denies any blood or mucous in the stool. Gets nausea once in a while and has a good appetite. Can get nausea when stomach is acting up the most. Has pain and discomfort in the abdomen lately Unsure what triggers the abdominal pain. Tapered off the probiotics - and things started to go downhill/was adding some foods back Takes oatmeal for breakfast with berries Avoids foods with preservatives which triggers her symptoms Lost some wt - unintentional Notes thick patches of skin which get flaky with scabs Itchy rash on the chest Denies any food allergies - allergic to red dye. Intermittent mouth ulcers - after hospitalization ? related to antibiotics. Denies diarrhea and reports having a formed and soft BM daily or every other day Previously had a BM daily to every other day - diagnosed with IBS with constipation. She was prescribed Linzess and did not take it (does not like to take medications) Notes intermittent abdominal pain 3-4 times a week lasting over several hours in different locations Denies association with food intake. Unclear if pain resolves after she has a BM. Taking Probiotics Eating a bland diet - chicken, bone broth, green beans, peas, oat meal and bananas. Had a little bit of stomach acid infrequently She takes acetaminophen prn for aches and pains Family hx if positive for self limited colitis in her Mom, Maternal GM had diverticulitis and Maternal GGM had colon cancer. Pt denies know FH of IBD. Pt is disabled and lives by herself in an apartment (Mom lives in the same [facility] [place]). LABS IN [place] : REVIEWED IMAGING STUDIES: 05/15/[address] SCAN SHOWED: GASTROINTESTINAL TRACT: Segmental concentric wall thickening, descending colon and segments of the edematous wall in the distal ileal loops. No intestinal obstruction pattern. No pneumatosis intestinalis. Appendix is normal. No ascites. An edematous mesentery . No pneumoperitoneum. ENDOSCOPIC STUDIES: 05/17/24 FLEXIBLE SIGMOIDOSCOPY SHOWED: Flexible sigmoidoscopy Findings: Edema, erythema and ulcerations with scattered white exudate/pseudomembranes extending from 20 to 50 cms and extending proximally - multiple biopsies were obtained. There was scattered stool and some old blood coating the vernon of the sigmoid colon. Stool specimen collected and sent for C Diff toxin and Gi panel No polyps were detected Moderate diverticulosis seen in the sigmoid colon Plan: 1. Continue IV pain medications, anti-emetics prn and antibiotics until biopsy results are available, 2. Full liquid diet - order placed and advance diet as tolerated. 3. Repeat CRP and check IBD serology - added to am labs Above findings were reviewed with the patient and her Mom. BIOPSIES SHOWED: A. Colon, sigmoid, biopsy: Acute ischemic colitis, patchy, with mucosal erosion and pseudomembrane formation (see comment). B. Rectum, biopsy: Colonic mucosa within normal limits; negative for active, chronic or microscopic colitis. COMMENT (A): The differential diagnosis includes ischemic colitis and pseudomembranous colitis (C. difficile-associated). Clinical correlation is suggeste PAST GI HISTORY BY REVIEW OF MEDICAL RECORDS: 05/15/24 PT WAS SEEN IN CONSULTATION: 39 YF with hx of hypothyroidism, hepatitis-C (treated) and mood disorder seen at [facility] on 05/15/24 with hematochezia, diarrhea and abdominal cramping. Pt reports severe watery, non bloody diarrhea starting 05/01 which resolved after 1-2 days. Since then she has noted some mild abdominal soreness. Last night at around 9 pm, she noted 7-8/10 lower abdominal pain with waves of cramping and loose to watery diarrhea with blood mixed with stools. Pt reports having at least 10 episodes of diarrhea with bright red blood. Pain is worse when she sits up or lies on her side. Pt complains of nausea, chills and sweating, weakness and dizziness and denies fever or vomiting. She denies any change in appetite or weight. Pt gives a hx of mouth ulcers in the past and denies Jt pains or skin rash She denies any history of similar symptoms in the past. No recent travel or antibiotics. She does report that there has been a hand sewer leak at her apartment and showed videos of stuff coming out of her ventilation from the upstairs neighbor. She reports there may have been some contamination with using basins to catch the leak. She has been practicing good hand hygiene. Pt denies smoking, ETOH or Marijuana or NSAID use. Plan 39 YF with hx of hypothyroidism, hepatitis-C (treated) and mood disorder admitted to [facility] on 05/15/24 with hematochezia, diarrhea and abdominal cramping. Pt complains of nausea, chills and sweating, weakness and dizziness and denies fever or vomiting. Pt gives a hx of mouth ulcers off and on in the past. Pt denies smoking, ETOH or Marijuana or NSAID use. Abd CT scan showed segmental concentric wall thickening involving the descending colon and segments of edematous wall in the distal ileal loops. Pt symptoms are likely due to infectious or ischemic colitis versus subacute presentation of IBD. Labs show elevated white count and CRP of 1.11. RECOMMENDATIONS: 1. Agree with IV antibiotics, pain medications and anti-emetics 2. Await results of stool studies 3. If stool cultures are negative, I will schedule her for a colonoscopy for further evaluation [facility] Medical History Hypothyroid Hepatitis C Anxiety Surgical History History of sigmoidoscopy History of liver biopsy History of lymph node dissection of left axilla Hx of wisdom tooth extraction Family History (Updated 01/10/25 @ 13:08 by JUAN ALBERTO Reynolds) Family/Other Colon cancer Social History Household Members: None Housing: Apartment Are you a primary career law clerk to a significant other at home: No Do you presently have visiting nurse or other home services: No Patient Tobacco Use Status: Former Tobacco user service: No Review of Systems Const All systems reviewed & are unremarkable except as noted in HPI and below Physical Exam Vital Signs: Last Vital Signs Pulse 71 01/10/25 13:07 BP 113/74 01/10/25 13:07 BMI result Body Mass Index 21.4 Const General: healthy appearing, no acute distress and anxious Nutritional Appearance: average body habitus Orientation/consciousness: patient oriented x3 Limitations: no limitations HEENT Head: Yes normal to inspection Ears: hearing grossly normal bilaterally Eyes Sclerae: sclerae normal Pupils: Equal, round and reactive pupils present Neck Neck: Yes normal visual inspection Chest Chest palpation & inspection: normal inspection of the chest Resp Effort & Inspection: normal respiratory effort Auscultation: clear to auscultation bilaterally Cardio Palpation: normal PMI Rate: regular rate Rhythm: regular rhythm Heart sounds: S1 normal heart sound present, S2 normal heart sound present and no murmurs GI Palpation (GI): Soft to palpation, Tenderness to palpation present (GI) (Mild lower abdominal tenderness) and No hepatosplenomegaly present Auscultation: normal bowel sounds Rectal Exam - Female: deferred Skin General skin exam: no rashes or lesions noted Neuro General: patient oriented x3, gait normal and moves all extremities Cranial nerves: Yes Equal, round and reactive pupils present Psych Appearance: grossly normal Mental Status: mental status grossly normal Assessment & Plan Assessment & Plan (1) Colitis: Code(s): K52.9 - Noninfective gastroenteritis and colitis, unspecified Category: Medical (2) Chronic diarrhea: Code(s): K52.9 - Noninfective gastroenteritis and colitis, unspecified Category: Medical Plan 39 YF with hx of hypothyroidism, hepatitis-C (treated) and mood disorder hostpitalized at [facility] 05/15/24 to 05/21/24 with hematochezia, diarrhea and abdominal cramping. Pt gave a hx of mouth ulcers off and on in the past and denied smoking, ETOH or Marijuana or NSAID use. Abd CT scan showed segmental concentric wall thickening involving the descending colon and segments of edematous wall in the distal ileal loops. Labs show elevated white count and CRP of 1.11. Flexible sigmoidoscopy showed Edema, erythema and ulcerations with scattered white exudate/pseudomembranes extending from 20 to 50 cms and extending proximally Stool specimen collected and sent for C Diff toxin and Gi panel - which was negative IBD serology - were negative for Crohn's disease or ulcerative colitis BIOPSIES SHOWED: A. Colon, sigmoid, biopsy: Acute ischemic colitis, patchy, with mucosal erosion and pseudomembrane formation (see comment). B. Rectum, biopsy: Colonic mucosa within normal limits; negative for active, chronic or microscopic colitis. COMMENT (A): The differential diagnosis includes ischemic colitis and pseudomembranous colitis (C. difficile-associated). 06/21/24 Pt denies diarrhea and reports having a formed BM daily and intermittent abd pain. Chronic nausea which she notes she had prior to the episode of colitis and is unchanged Taking probiotics and staying on a bland diet Patient was advised to continue taking probiotics daily x 3 months Offered a prescription for Dicyclomine for abdominal pain which she declined Pt handout on IBS mailed to the pt with the AVS 09/27/24 Still having stomach issues, having rashes and diarrhea. Has a BM 1 to 3 times a day with gritty stools which are not formed. Denies any blood or mucous in the stool. 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 Pt advised to check a fecal calprotectin and follow a FODMAP diet fecal calprotectin was 12 (normal) 01/10/25 Feels a lot better - not completely normal and notices a big improvement. Notes a BM 1-2 times a day - mostly formed and sometimes loose (can be diet related) Pt advised to continue to monitor her symptoms. Make a list of foods which cause diarrhea/bloating Can take another course of probiotics/or take croatian yogurt with probiotics prn Fu appt in 6 months Coding Level of Care Code Est Pt Level 4 (18349) Diagnoses Colitis K52.9 Chronic diarrhea K52.9 Time Spent (min) 22
[2025-01-10 13:07] VITALS: BP 113/74; PULSE 71; BMI 21.4
== END 2025-01-10 18:34 | disposition home or self-care (01) ==
LOC: HO.HGI 12:55
PROVIDERS: PCP Internal Medicine; Visit Provider Internal Medicine Gastroenterology
DX: K52.9 Noninfective gastroenteritis and colitis, unspecified (principal)
CPT/HCPCS: 99214

== ENCOUNTER → 2025-01-10 12:54 | Outpatient (BNVA) | payer MEDICARE, MEDICAID, SELFPAY | PROVIDERS: PCP Internal Medicine; Visit Provider Internal Medicine Gastroenterology | DX: K52.9 Noninfective gastroenteritis and colitis, unspecified (principal); Z79.890 Hormone replacement therapy; Z79.899 Other long term (current) drug therapy | CPT/HCPCS: 99212 ==